=== PATIENT | female | born 1940 | race Caucasian/White ===

== ENCOUNTER → 2017-01-28 | Outpatient (REF) | payer MEDICARE ==
[2017-01-28 12:28] LABS: BASO % 0.4 % (0.0-1.0); EOS # 1.8 K/mm3 (0.0-0.50); EOS % 27.4 % (0.0-3.0); LARGE UNSTAINED CELL # 0.1 K/mm3 (0.0-0.4); LARGE UNSTAINED CELL % 1.3 % (0.0-4.0); LYMPH # 1.5 K/mm3 (1.5-4.5); MEAN CORPUSCULAR HEMOGLOBIN 27.1 pg (27.0-33.0); MEAN CORPUSCULAR HGB CONC 30.4 g/dl (32.0-36.5); MEAN CORPUSCULAR VOLUME 89.1 fl (80.0-96.0); MONO # 0.4 K/mm3 (0.0-0.8); MONO % 6.7 % (0.0-5.0); NEUTROPHILS # 2.9 K/mm3 (1.8-7.7); NEUTROPHILS % 43.1 % (36.0-66.0); PLATELET COUNT, AUTOMATED 474 k/mm3 (150-450); RED CELL DISTRIBUTION WIDTH 13.8 % (11.5-14.5); WHITE BLOOD COUNT 6.6 K/mm3 (4.0-10.0)
[2017-01-28 13:08] LABS: ALBUMIN 2.8 GM/DL (3.2-5.2); ALBUMIN/GLOBULIN RATIO 1.27 (1.00-1.93); ALKALINE PHOSPHATASE 52 U/L (45-117); ALT/SGPT 17 U/L (12-78); ANION GAP 8 MEQ/L (8-16); AST/SGOT 14 U/L (15-37); BILIRUBIN,TOTAL 0.1 MG/DL (0.2-1.0); BLOOD UREA NITROGEN 24 MG/DL (7-18); CALCIUM LEVEL 7.5 MG/DL (8.8-10.2); CARBON DIOXIDE LEVEL 25 MEQ/L (21-32); CHLORIDE LEVEL 106 MEQ/L (98-107); CREATININE FOR GFR 0.72 MG/DL (0.55-1.02); FREE T4 1.12 NG/DL (0.76-1.46); GLOMERULAR FILTRATION RATE > 60.0 (>39); GLUCOSE, FASTING 80 MG/DL (83-110); POTASSIUM SERUM 4.2 MEQ/L (3.5-5.1); SODIUM LEVEL 139 MEQ/L (136-145)
== END ==
LOC: M SFHCCLAY 08:59
PROVIDERS: ATTEND Family Medicine
DX: K58.2 Mixed irritable bowel syndrome (principal); R03.0 Elevated blood-pressure reading, without diagnosis of hypertension; E03.9 Hypothyroidism, unspecified
CPT/HCPCS: 36415; 80053; 83516; 84439; 84443; 85025; G0463

== ENCOUNTER → 2017-02-03 | Outpatient (REF) | payer MEDICARE ==
[2017-02-03 17:09] LABS: BASO % 0.5 % (0.0-1.0); EOS # 2.1 K/mm3 (0.0-0.50); EOS % 31.4 % (0.0-3.0); LARGE UNSTAINED CELL # 0.1 K/mm3 (0.0-0.4); LARGE UNSTAINED CELL % 1.9 % (0.0-4.0); LYMPH # 1.7 K/mm3 (1.5-4.5); LYMPH % 25.1 % (24.0-44.0); MEAN CORPUSCULAR HEMOGLOBIN 26.5 pg (27.0-33.0); MEAN CORPUSCULAR HGB CONC 30.2 g/dl (32.0-36.5); MEAN CORPUSCULAR VOLUME 87.6 fl (80.0-96.0); MONO # 0.4 K/mm3 (0.0-0.8); MONO % 5.5 % (0.0-5.0); NEUTROPHILS # 2.4 K/mm3 (1.8-7.7); NEUTROPHILS % 35.7 % (36.0-66.0); PLATELET COUNT, AUTOMATED 411 k/mm3 (150-450); RED CELL DISTRIBUTION WIDTH 13.9 % (11.5-14.5); WHITE BLOOD COUNT 6.8 K/mm3 (4.0-10.0)
[2017-02-03 18:40] LABS: FOLATE 16.6 NG/ML; PERCENT SATURATION 2.8 % (13.2-37.4)
== END ==
LOC: M SFHCCLAY 10:50
PROVIDERS: ATTEND Family Medicine
DX: D64.9 Anemia, unspecified (principal); D72.1 Eosinophilia

== ENCOUNTER → 2017-02-06 | Outpatient (REF) | payer MEDICARE ==
[2017-02-06 18:05] LABS: MEAN CORPUSCULAR HGB CONC 31.9 g/dl (32.0-36.5); MEAN CORPUSCULAR VOLUME 87.9 fl (80.0-96.0); RED CELL DISTRIBUTION WIDTH 14.2 % (11.5-14.5); WHITE BLOOD COUNT 8.4 K/mm3 (4.0-10.0)
== END ==
LOC: M SFHCCLAY 09:46
PROVIDERS: ATTEND Family Medicine
DX: D64.9 Anemia, unspecified (principal)

== ENCOUNTER → 2017-02-17 | Outpatient (REF) | payer MEDICARE ==
[2017-02-17 17:36] LABS: BASO # 0.1 K/mm3 (0.0-0.2); EOS # 1.8 K/mm3 (0.0-0.50); EOS % 25.6 % (0.0-3.0); LARGE UNSTAINED CELL # 0.2 K/mm3 (0.0-0.4); LARGE UNSTAINED CELL % 2.3 % (0.0-4.0); LYMPH # 1.9 K/mm3 (1.5-4.5); LYMPH % 26.6 % (24.0-44.0); MEAN CORPUSCULAR HEMOGLOBIN 27.7 pg (27.0-33.0); MEAN CORPUSCULAR HGB CONC 31.2 g/dl (32.0-36.5); MEAN CORPUSCULAR VOLUME 88.8 fl (80.0-96.0); MONO # 0.4 K/mm3 (0.0-0.8); MONO % 5.6 % (0.0-5.0); NEUTROPHILS # 2.7 K/mm3 (1.8-7.7); NEUTROPHILS % 38.9 % (36.0-66.0); PLATELET COUNT, AUTOMATED 552 k/mm3 (150-450); RED CELL DISTRIBUTION WIDTH 15.7 % (11.5-14.5)
== END ==
LOC: M SFHCCLAY 10:00
PROVIDERS: ATTEND Family Medicine
DX: D50.9 Iron deficiency anemia, unspecified (principal)

== ENCOUNTER → 2017-03-19 | Outpatient (REF) | payer MEDICARE ==
[~2017-03-19] MED LIST: ALLE180T33 PO; BUTA-198 PO; CLON-412 PO; FLUT1SPR2; IRON65TA PO; LEVO50TA5 PO; MULT1TAB10 PO; MYRB25TA PO; VERA24TASA PO
[2017-03-19 11:49] LABS: BASO # 0.1 K/mm3 (0.0-0.2); BASO % 0.7 % (0.0-1.0); EOS # 2.8 K/mm3 (0.0-0.50); EOS % 33.4 % (0.0-3.0); LARGE UNSTAINED CELL # 0.2 K/mm3 (0.0-0.4); LYMPH # 2.1 K/mm3 (1.5-4.5); LYMPH % 25.1 % (24.0-44.0); MEAN CORPUSCULAR HEMOGLOBIN 28.2 pg (27.0-33.0); MEAN CORPUSCULAR HGB CONC 31.6 g/dl (32.0-36.5); MEAN CORPUSCULAR VOLUME 89.1 fl (80.0-96.0); MONO # 0.4 K/mm3 (0.0-0.8); MONO % 5.1 % (0.0-5.0); NEUTROPHILS # 2.8 K/mm3 (1.8-7.7); NEUTROPHILS % 33.7 % (36.0-66.0); PLATELET COUNT, AUTOMATED 534 k/mm3 (150-450); RED CELL DISTRIBUTION WIDTH 18.3 % (11.5-14.5); WHITE BLOOD COUNT 8.4 K/mm3 (4.0-10.0)
== END ==
LOC: M SFHCCLAY 08:43
PROVIDERS: ATTEND Family Medicine
DX: D72.1 Eosinophilia (principal)

== ENCOUNTER → 2017-04-06 | Outpatient (REF) | payer MEDICARE ==
[2017-04-06 18:52] LABS: BASO % 0.4 % (0.0-1.0); EOS # 2.1 K/mm3 (0.0-0.50); EOS % 27.8 % (0.0-3.0); LARGE UNSTAINED CELL # 0.2 K/mm3 (0.0-0.4); LARGE UNSTAINED CELL % 2.4 % (0.0-4.0); LYMPH % 24.5 % (24.0-44.0); MEAN CORPUSCULAR HEMOGLOBIN 28.8 pg (27.0-33.0); MEAN CORPUSCULAR HGB CONC 32.1 g/dl (32.0-36.5); MEAN CORPUSCULAR VOLUME 89.7 fl (80.0-96.0); MONO # 0.4 K/mm3 (0.0-0.8); MONO % 5.3 % (0.0-5.0); NEUTROPHILS % 39.6 % (36.0-66.0); PLATELET COUNT, AUTOMATED 425 k/mm3 (150-450); RED CELL DISTRIBUTION WIDTH 18.8 % (11.5-14.5); WHITE BLOOD COUNT 7.6 K/mm3 (4.0-10.0)
== END ==
LOC: M SFHCCLAY 10:30
PROVIDERS: ATTEND Family Medicine
DX: D72.1 Eosinophilia (principal)
CPT/HCPCS: 85025; 95115; G0463

== ENCOUNTER 2017-04-22 08:45 | Outpatient (CLI) | payer MEDICARE ==
[~2017-04-22] VITALS: Ht 157.5 cm; Wt 53.5 kg
[2017-04-22] MEDS ORDERED: LIDOCAINE 2% INJ 100 MG/5 ML SDV (FOR ANES.) As Ordered ONE (08:57)
[2017-04-22] MEDS ORDERED: PROPOFOL 200 MG/20 ML VIAL As Ordered ONE (08:57)
[2017-04-22] MEDS ORDERED: NS 1,000 ML IV ONE (09:00)
--- NOTE | 2017-04-22 09:52 | ROOR ---
Patient Name: Brook Vizcaino Procedure Date: 04/22/2017 9:37 AM Date of : 1940 Age: 76 Room: [facility] Gender: Female Note Status: Finalized Procedure: Upper GI endoscopy Indications: Iron deficiency anemia Providers: Ish Britt MD Referring MD: Ryan Rodgers MD Requesting Provider: Medicines: Monitored Anesthesia Care Complications: No immediate complications. Procedure: Pre-Anesthesia Assessment: - The heart rate, respiratory rate, oxygen saturations, blood pressure, adequacy of pulmonary ventilation, and response to care were monitored throughout the procedure. The Endoscope was introduced through the mouth, with the intention of advancing to the duodenum. The scope was advanced to the duodenal bulb before the procedure was aborted. Medications were given. The upper GI endoscopy was accomplished without difficulty. The patient tolerated the procedure well. Findings: The Z-line was regular and was found 35 cm from the incisors. Localized mild inflammation characterized by congestion (edema), erosions, erythema and granularity was found in the prepyloric region of the stomach. An acquired benign-appearing, intrinsic severe stenosis was found in the first portion of the duodenum and was non-traversed. Food (residue) was found in the first portion of the duodenum. Impression: - Z-line regular, 35 cm from the incisors. - Acute gastritis. - Acquired duodenal stenosis. - Retained food in the duodenum. - No specimens collected. - The examination was otherwise normal. Recommendation: - Patient has a contact number available for emergencies. The signs and symptoms of potential delayed complications were discussed with the patient. Return to normal activities tomorrow. Written discharge instructions were provided to the patient. - Discharge patient to home. - Mechanical soft diet. - Do an upper GI series at appointment to be scheduled. - Continue present medications. - The findings and recommendations were discussed with the patient's family. Ish Britt MD Ish Britt MD 04/22/2017 9:52:11 AM This report has been signed electronically. Number of Addenda: 0 Note Initiated On: 04/22/2017 9:37 AM Estimated Blood Loss: Estimated blood loss: none.
--- NOTE | 2017-04-22 10:08 | ROOR ---
Patient Name: Brook Vizcaino Procedure Date: 04/22/2017 9:38 AM Date of : 1940 Age: 76 Room: [facility] Gender: Female Note Status: Finalized Procedure: Total Colonoscopy to Cecum Indications: Iron deficiency anemia Providers: Ish Britt MD Referring MD: Ryan Rodgers MD Requesting Provider: Medicines: Monitored Anesthesia Care Complications: No immediate complications. Procedure: Pre-Anesthesia Assessment: - The heart rate, respiratory rate, oxygen saturations, blood pressure, adequacy of pulmonary ventilation, and response to care were monitored throughout the procedure. The Colonoscope was introduced through the anus and advanced to the cecum, identified by appendiceal orifice and ileocecal valve. The colonoscopy was performed without difficulty. The patient tolerated the procedure well. The quality of the bowel preparation was excellent. Findings: The perianal and digital rectal examinations were normal. Non-bleeding internal hemorrhoids were found during retroflexion. The hemorrhoids were small and Grade I (internal hemorrhoids that do not prolapse). Multiple small and large-mouthed diverticula were found in the recto-sigmoid colon, sigmoid colon and descending colon. The exam was otherwise without abnormality on direct and retroflexion views. Impression: - Non-bleeding internal hemorrhoids. - Diverticulosis in the recto-sigmoid colon, in the sigmoid colon and in the descending colon. - The examination was otherwise normal on direct and retroflexion views. - No specimens collected. - The exam was otherwise normal to the cecum. Recommendation: - Patient has a contact number available for emergencies. The signs and symptoms of potential delayed complications were discussed with the patient. Return to normal activities tomorrow. Written discharge instructions were provided to the patient. - High fiber diet. - Discharge patient to home. - Continue present medications. - Repeat colonoscopy for symptoms only. - The findings and recommendations were discussed with the patient's family. Ihs Britt MD Ish Britt MD 04/22/2017 10:07:38 AM This report has been signed electronically. Number of Addenda: 0 Note Initiated On: 04/22/2017 9:38 AM Estimated Blood Loss: Estimated blood loss: none.
[2017-04-22 10:36] VITALS: BP 140/63
== END 2017-04-22 10:58 | disposition home or self-care (01) ==
LOC: M OPP 08:45
PROVIDERS: ATTEND Internal Medicine Gastroenterology
DX: D50.9 Iron deficiency anemia, unspecified (principal); K64.0 First degree hemorrhoids; K57.30 Diverticulosis of large intestine without perforation or abscess without bleeding; K29.00 Acute gastritis without bleeding; K31.5 Obstruction of duodenum; K21.9 Gastro-esophageal reflux disease without esophagitis; E03.9 Hypothyroidism, unspecified; I10 Essential (primary) hypertension; I47.1 Supraventricular tachycardia; J30.9 Allergic rhinitis, unspecified; K58.9 Irritable bowel syndrome, unspecified; R51 Headache; Z87.891 Personal history of nicotine dependence; Z88.1 Allergy status to other antibiotic agents; Z88.5 Allergy status to narcotic agent; Z88.0 Allergy status to penicillin; Z88.2 Allergy status to sulfonamides; Z88.3 Allergy status to other anti-infective agents; Z79.899 Other long term (current) drug therapy

== ENCOUNTER → 2017-04-30 | Outpatient (CLI) | payer MEDICARE ==
[~2017-04-30] MED LIST changes: +E-Z-GAS II EFFERVESCENT PACKET (SODIUM BICARB./CITRIC ACID/SIMETHICONE) As Ordered ONE; +E-Z-HD 98% w/w 340GM SUSP BTL As Ordered ONE; +E-Z-PAQUE 96% w/w SUSP 176GM BTL As Ordered ONE
--- NOTE | 2017-04-30 15:56 | REP ---
UPPER GI/SMALL BOWEL FOLLOW THROUGH: The procedure was performed by GLENYS Greenwood under the direct supervision of Dr. Donald. All imaging was reviewed with Dr Donald prior to dictation. The patient was able to ingest liquid barium and air in a quantity sufficient to produce a double contrast examination. The oral and pharyngeal stages of deglutition appeared unremarkable. Esophageal transport was prompt and efficient. There was no evidence of esophagitis, stricture, mucosal ring, or hiatal hernia. Gastroesophageal reflux was not observed. The stomach shankar were normally outlined. The rugal folds were smooth and regular. There was no evidence of gastritis, neoplasm, or ulcerative disease. The duodenal shankar were normally outlined. There is no evidence of duodenitis, pancreatitis, peptic ulcer disease, or neoplasm. The visualized portion of the proximal small bowel is normal in course and caliber. Additional liquid barium was given at the end of the examination in order to perform a small bowel follow through. During fluoroscopy gentle palpation of the small bowel loops showed them to be freely movable and pliable without evidence of a fixed or angulated loop. The small bowel mucosal pattern was normal in course and caliber. There was no transition to suggest a partial small bowel obstruction. Spot filming of the terminal ileum showed it to be within normal limits. Incidental finding of left colon diverticula. IMPRESSION: Unremarkable double contrast upper GI examination with small bowel follow through wit incidental finding of left colon diverticula. Fluoroscopy time was 3 minutes and 2 seconds. Reviewed by GLENYS Villalobos 04/30/2017 04:05 PEdited and Signed by Uvaldo Donald MD 04/30/2017 04:34 P
== END ==
LOC: M RAD 10:24
PROVIDERS: ATTEND Internal Medicine Gastroenterology
DX: D64.9 Anemia, unspecified (principal)

== ENCOUNTER → 2017-05-04 | Outpatient (REF) | payer MEDICARE ==
[~2017-05-04] MED LIST changes: -E-Z-GAS II EFFERVESCENT PACKET (SODIUM BICARB./CITRIC ACID/SIMETHICONE) As Ordered ONE; -E-Z-HD 98% w/w 340GM SUSP BTL As Ordered ONE; -E-Z-PAQUE 96% w/w SUSP 176GM BTL As Ordered ONE
[2017-05-04 19:09] LABS: BASO % 0.3 % (0.0-1.0); EOS # 1.4 K/mm3 (0.0-0.50); EOS % 21.8 % (0.0-3.0); LYMPH # 1.8 K/mm3 (1.5-4.5); LYMPH % 26.1 % (24.0-44.0); MONO # 0.4 K/mm3 (0.0-0.8); MONO % 6.9 % (0.0-5.0); NEUTROPHILS # 2.7 K/mm3 (1.8-7.7); NEUTROPHILS % 42.7 % (36.0-66.0)
[2017-05-04 19:33] LABS: REASON FOR REVIEW OTHER
[2017-05-04 23:15] LABS: PERCENT SATURATION 23.8 % (13.2-45.0)
== END ==
LOC: M LAB REF 14:26
PROVIDERS: ATTEND Internal Medicine Medical Oncology
DX: D72.1 Eosinophilia (principal); D50.9 Iron deficiency anemia, unspecified

== ENCOUNTER → 2017-05-11 | Outpatient (CLI) | payer MEDICARE ==
--- NOTE | 2017-05-11 16:11 | REP ---
Chest x-ray: Two views. History: Question lung pathology. Findings: A pectus excavatum deformity seen on lateral radiograph. A mild dextroconvex curve is seen in the lower thoracic spine. No other bony abnormality is seen. Lungs are well inflated and clear. Pleural angles are sharp. Heart size is felt to be normal. Pulmonary vasculature is not increased. Impression: No active disease. Mild pectus excavatum.
== END ==
LOC: M CLY 15:00
PROVIDERS: ATTEND Internal Medicine Medical Oncology
DX: D72.1 Eosinophilia (principal); Q67.6 Pectus excavatum

== ENCOUNTER → 2017-06-01 | Outpatient (REF) | payer MEDICARE ==
[2017-06-01 19:03] LABS: BASO % 0.5 % (0.0-1.0); EOS # 0.8 K/mm3 (0.0-0.50); EOS % 14.3 % (0.0-3.0); LARGE UNSTAINED CELL # 0.1 K/mm3 (0.0-0.4); LARGE UNSTAINED CELL % 2.6 % (0.0-4.0); LYMPH # 1.5 K/mm3 (1.5-4.5); LYMPH % 25.7 % (24.0-44.0); MEAN CORPUSCULAR HEMOGLOBIN 32.3 pg (27.0-33.0); MEAN CORPUSCULAR HGB CONC 32.8 g/dl (32.0-36.5); MEAN CORPUSCULAR VOLUME 98.4 fl (80.0-96.0); MONO # 0.4 K/mm3 (0.0-0.8); MONO % 6.7 % (0.0-5.0); NEUTROPHILS # 2.7 K/mm3 (1.8-7.7); NEUTROPHILS % 50.2 % (36.0-66.0); PLATELET COUNT, AUTOMATED 285 k/mm3 (150-450); RED CELL DISTRIBUTION WIDTH 16.6 % (11.5-14.5); WHITE BLOOD COUNT 5.3 K/mm3 (4.0-10.0)
== END ==
LOC: M SFHCCLAY 10:08
PROVIDERS: ATTEND Family Medicine
DX: D72.1 Eosinophilia (principal)
CPT/HCPCS: 36415; 85025; 95115; G0463

== ENCOUNTER → 2017-06-10 | Outpatient (CLI) | payer MEDICARE ==
--- NOTE | 2017-06-10 13:25 | REPMRS ---
Patient History The patient states she had a clinical breast exam in 04/2017. Patient is postmenopausal and has history of endometrial cancer at age 68. No known family history of cancer. Took estrogen for 20 years beginning at age 48. Digital Woman Screen Mammo: June 10, 2017 - Exam #: [id number] Bilateral CC and MLO view(s) were taken. Technologist: Rosa Rees Technologist Prior study comparison: June 04, 2016, digital woman screen mammo performed at [facility] to [facility]. June 04, 2015, digital woman screen mammo performed at [facility] to [facility]. FINDINGS: There are scattered fibroglandular densities. There has been no change in the appearance of the mammogram from the prior studies. There is a mild amount of residual fibroglandular tissue which is fairly symmetric. There is no interval development of dominant mass, architectural distortion, or clustered microcalcification suggestive of malignancy. ASSESSMENT: BI-RADS/ACR category 1 mammogram. Negative. Recommendation Routine screening mammogram in 1 year (for women over age 40). This mammogram was interpreted with the aid of an FDA-approved computer-aided dectection system. Electronically Signed By: Kristian Zuniga MD 06/10/17 0828
--- NOTE | 2017-06-12 09:36 | DEXA ---
AP SPINE L1 - L4 1.319 1.2 3.0 LT FEMUR TOTAL 0.899 -0.9 1.1 RT FEMUR TOTAL 0.973 -0.3 1.6 TOTAL BODY TOTAL OTHER DUAL FEMUR FRAX* ASSESSMENT Risk factors: Not done. 10 year probability of fracture Major osteoporotic fracture % Hip fracture % COMMENTS: Normal bone densitometry of the spine. There is low bone density of the hips. The decreased density of the spine does represent a significant change. The decreased density of the left hip does represent a significant change. The decreased density of the right hip does represent a significant change. The density of the spine has decreased 6.3% since the initial exam on 1999. The spine density has decreased 3.2% since the most recent exam on 06/04/2015. The density of the left hip has decreased 15.8% since the initial exam on 1999. The density of the left hip has decreased 5.3% since the most recent exam on . The density of the right hip has decreased 14.3% since the initial exam on 06/25. The density of the right hip has decreased 4.6% since the most recent exam on . FOLLOW-UP: Recommendation for the next bone density exam: 2 years. JAZZ
== END ==
LOC: M WHC 11:01
DX: Z12.31 Encounter for screening mammogram for malignant neoplasm of breast (principal); M85.80 Other specified disorders of bone density and structure, unspecified site
CPT/HCPCS: 77080; G0202

== ENCOUNTER → 2017-06-15 | Outpatient (REF) | payer MEDICARE ==
[2017-06-15 13:53] LABS: BASO # 0.1 10^3/uL (0.0-0.2); BASO % 0.9 % (0.0-1.0); EOS # 1.7 10^3/uL (0.0-0.50); IMMATURE GRANULOCYTE % 0.1 % (0-0); LYMPH # 2.2 10^3/uL (1.5-4.5); LYMPH % 30.4 % (24.0-44.0); MONO # 0.5 10^3/uL (0.0-0.8); MONO % 6.4 % (0.0-5.0); NEUTROPHILS # 2.9 10^3/uL (1.8-7.7); NEUTROPHILS % 39.4 % (36.0-66.0)
[2017-06-15 13:57] LABS: EOS % 22.8 % (0.0-3.0)
== END ==
LOC: M LAB REF 13:23
PROVIDERS: ATTEND Internal Medicine Medical Oncology
DX: D72.1 Eosinophilia (principal)

== ENCOUNTER → 2017-12-10 | Outpatient (REF) | payer MEDICARE ==
[2017-12-10 14:41] LABS: ATYPICAL LYMPH 2 % (0-5); BASOPHILS 2 % (0-4); EOSINOPHILS 36 % (0-5); LYMPHOCYTES 26 % (16-52); MONOCYTES 4 % (0-8); NEUTROPHILS 30 % (35-75); PLATELET ESTIMATE NORMAL (NORMAL)
[2017-12-10 14:42] LABS: ANISOCYTOSIS 1+
== END ==
LOC: M LAB REF 13:25
DX: D64.9 Anemia, unspecified (principal)
CPT/HCPCS: 85007

== ENCOUNTER → 2018-04-07 | Outpatient (REF) | payer MEDICARE ==
[2018-04-07 16:52] LABS: ALBUMIN 3.1 GM/DL (3.2-5.2); ALBUMIN/GLOBULIN RATIO 1.19 (1.00-1.93); ALKALINE PHOSPHATASE 59 U/L (45-117); ALT/SGPT 21 U/L (12-78); ANION GAP 7 MEQ/L (8-16); AST/SGOT 16 U/L (7-37); BILIRUBIN,TOTAL < 0.1 MG/DL (0.2-1.0); BLOOD UREA NITROGEN 21 MG/DL (7-18); CALCIUM LEVEL 8.2 MG/DL (8.8-10.2); CARBON DIOXIDE LEVEL 29 MEQ/L (21-32); CHLORIDE LEVEL 106 MEQ/L (98-107); CREATININE FOR GFR 0.83 MG/DL (0.55-1.30); FERRITIN 30 NG/ML (8-252); FREE T4 0.91 NG/DL (0.76-1.46); GLOMERULAR FILTRATION RATE > 60.0 (>39); GLUCOSE, FASTING 79 MG/DL (70-100); POTASSIUM SERUM 4.2 MEQ/L (3.5-5.1); SODIUM LEVEL 142 MEQ/L (136-145); TOTAL PROTEIN 5.7 GM/DL (6.4-8.2)
[2018-04-07 16:54] LABS: BASO # 0.1 10^3/uL (0.0-0.2); BASO % 0.9 % (0.0-1.0); EOS # 1.4 10^3/uL (0.0-0.50); HEMATOCRIT 34.2 % (36.0-47.0); HEMOGLOBIN 11.8 g/dl (12.0-15.5); LYMPH # 1.7 10^3/uL (1.5-4.5); LYMPH % 27.2 % (24.0-44.0); MEAN CORPUSCULAR HEMOGLOBIN 34.6 pg (27.0-33.0); MEAN CORPUSCULAR HGB CONC 34.5 g/dl (32.0-36.5); MEAN CORPUSCULAR VOLUME 100.3 fl (80.0-96.0); MONO # 0.6 10^3/uL (0.0-0.8); MONO % 9.3 % (0.0-5.0); NEUTROPHILS # 2.6 10^3/uL (1.8-7.7); NEUTROPHILS % 40.3 % (36.0-66.0); PLATELET COUNT, AUTOMATED 254 10^3/uL (150-450); RED BLOOD COUNT 3.41 10^6/uL (4.00-5.40); RED CELL DISTRIBUTION WIDTH 12.1 % (11.5-14.5); WHITE BLOOD COUNT 6.4 10^3/uL (4.0-10.0)
[2018-04-07 17:25] LABS: EOS % 22.3 % (0.0-3.0); POSITIVE DIFF POS FLAG
== END ==
LOC: M SFHCCLAY 10:38
DX: D50.9 Iron deficiency anemia, unspecified (principal); E03.9 Hypothyroidism, unspecified; I47.1 Supraventricular tachycardia
CPT/HCPCS: 84443

== ENCOUNTER → 2018-08-09 | Outpatient (REF) | payer MEDICARE ==
[2018-08-10 12:26] LABS: BASO # 0.1 10^3/uL (0.0-0.2); BASO % 0.7 % (0.0-1.0); EOS # 1.5 10^3/uL (0.0-0.50); EOS % 17.5 % (0.0-3.0); HEMATOCRIT 37.8 % (36.0-47.0); HEMOGLOBIN 12.7 g/dl (12.0-15.5); IMMATURE GRANULOCYTE % 0.3 % (0-3.0); LYMPH % 22.2 % (24.0-44.0); MEAN CORPUSCULAR HEMOGLOBIN 34.7 pg (27.0-33.0); MEAN CORPUSCULAR HGB CONC 33.6 g/dl (32.0-36.5); MEAN CORPUSCULAR VOLUME 103.3 fl (80.0-96.0); MONO # 0.8 10^3/uL (0.0-0.8); MONO % 8.6 % (0.0-5.0); NEUTROPHILS # 4.5 10^3/uL (1.8-7.7); NEUTROPHILS % 50.7 % (36.0-66.0); PLATELET COUNT, AUTOMATED 303 10^3/uL (150-450); RED BLOOD COUNT 3.66 10^6/uL (4.00-5.40); RED CELL DISTRIBUTION WIDTH 12.7 % (11.5-14.5); WHITE BLOOD COUNT 8.8 10^3/uL (4.0-10.0)
[2018-08-10 12:44] LABS: ALBUMIN 3.6 GM/DL (3.2-5.2); ALBUMIN/GLOBULIN RATIO 1.44 (1.00-1.93); ALKALINE PHOSPHATASE 55 U/L (45-117); ALT/SGPT 28 U/L (12-78); ANION GAP 9 MEQ/L (8-16); AST/SGOT 19 U/L (7-37); BILIRUBIN,TOTAL 0.1 MG/DL (0.2-1.0); BLOOD UREA NITROGEN 22 MG/DL (7-18); CALCIUM LEVEL 8.8 MG/DL (8.8-10.2); CARBON DIOXIDE LEVEL 25 MEQ/L (21-32); CHLORIDE LEVEL 106 MEQ/L (98-107); CREATININE FOR GFR 0.92 MG/DL (0.55-1.30); GLOMERULAR FILTRATION RATE > 60.0 (>39); GLUCOSE, FASTING 89 MG/DL (70-100); IRON (FE) 148 UG/DL (50-170); POTASSIUM SERUM 3.8 MEQ/L (3.5-5.1); SODIUM LEVEL 140 MEQ/L (136-145); TOTAL PROTEIN 6.1 GM/DL (6.4-8.2)
[2018-08-10 12:49] LABS: ERYTHROCYTE SEDIMENTATION RATE 8 mm/hr (0-30)
[2018-08-11 08:06] LABS: TRANSFERRIN 212 mg/dL (200-370)
[2018-08-13 11:14] LABS: ALPHA-1-GLOBULIN % 5.9 % (2.9-4.9); ALPHA-1-GLOBULINS 0.36 GM/DL (0.17-0.41); ALPHA-2-GLOBULINS 0.72 GM/DL (0.42-0.99); ALPHA-2-GLOBULINS % 11.8 % (7.1-11.8); BETA-1-GLOBULINS 0.35 GM/DL (0.28-0.60); BETA-1-GLOBULINS % 5.7 % (4.7-7.2); BETA-2-GLOBULINS 0.24 GM/DL (0.19-0.55); BETA-2-GLOBULINS % 3.9 % (3.2-6.5); GAMMA GLOBULIN % 8.7 % (11.1-18.8); GAMMA GLOBULINS 0.53 GM/DL (0.65-1.58)
== END ==
LOC: M SFHCCLAY 15:13
DX: D50.9 Iron deficiency anemia, unspecified (principal); I47.1 Supraventricular tachycardia; D72.1 Eosinophilia; E03.9 Hypothyroidism, unspecified
CPT/HCPCS: 83540

== ENCOUNTER → 2018-08-11 | Outpatient (CLI) | payer MEDICARE | LOC: M WHC 12:51 | DX: Z12.31 Encounter for screening mammogram for malignant neoplasm of breast (principal); R92.1 Mammographic calcification found on diagnostic imaging of breast | CPT/HCPCS: 77067 ==

== ENCOUNTER 2018-09-09 10:53 | Day surgery (SDC) | payer MEDICARE ==
[~2018-09-09] VITALS: Ht 157.5 cm; Wt 49.0 kg
[~2018-09-09 10:53] MED LIST changes: +CALTCHW4 PO; +FLUTISP; +GAVICHW PO; +LIDOCAINE 2% INJ 100 MG/5 ML SDV (FOR ANES.) As Ordered ONE; +NEXI20CA PO; +PROPOFOL 200 MG/20 ML VIAL As Ordered ONE; +SALI0.6528; +ZANTTAB PO
[2018-09-09] MEDS ORDERED: NS 1,000 ML IV ONE (11:00)
[2018-09-09] MEDS ORDERED: PROPOFOL 200 MG/20 ML VIAL As Ordered ONE ×2 (13:16→13:19)
--- NOTE | 2018-09-09 13:59 | ROOR ---
Patient Name: Brook Vizcaino Procedure Date: 09/09/2018 1:02 PM Date of : 1940 Age: 77 Room: [facility] Gender: Female Note Status: Finalized Procedure: Upper GI endoscopy Indications: Follow-up of duodenal stenosis Providers: Bogdan Yen MD Referring MD: Ryan Rodgers MD Requesting Provider: Medicines: Monitored Anesthesia Care Complications: No immediate complications. Procedure: Pre-Anesthesia Assessment: - Prior to the procedure, a History and Physical was performed, and patient medications and allergies were reviewed. The patient is competent. The risks and benefits of the procedure and the sedation options and risks were discussed with the patient. All questions were answered and informed consent was obtained. Patient identification and proposed procedure were verified by the physician, the nurse and the manager lvn in the procedure room. Mental Status Examination: alert and oriented. Airway Examination: normal oropharyngeal airway and neck mobility. CV Examination: regular rate and rhythm. Prophylactic Antibiotics: The patient does not require prophylactic antibiotics. Prior Anticoagulants: The patient has taken no previous anticoagulant or antiplatelet agents. ASA Grade Assessment: II - A patient with mild systemic disease. After reviewing the risks and benefits, the patient was deemed in satisfactory condition to undergo the procedure. The anesthesia plan was to use monitored anesthesia care (MAC). Immediately prior to administration of medications, the patient was re-assessed for adequacy to receive sedatives. The heart rate, respiratory rate, oxygen saturations, blood pressure, adequacy of pulmonary ventilation, and response to care were monitored throughout the procedure. The physical status of the patient was re-assessed after the procedure. The Endoscope was introduced through the mouth, and advanced to the duodenal bulb. The upper GI endoscopy was accomplished without difficulty. The patient tolerated the procedure well. Findings: The examined esophagus was normal. A small hiatal hernia was present. A small amount of food (residue) was found on the greater curvature of the stomach. Multiple dispersed, 2 to 7 mm non-bleeding erosions were found in the prepyloric region of the stomach and at the pylorus. There were no stigmata of recent bleeding. A moderate narrowing was noted at the end of the duodenal bulb. An acquired benign-appearing, intrinsic severe stenosis was found in the first portion of the duodenum and was non-traversed. Biopsies were taken with a cold forceps for histology. This was a tight stricture about a cm or two distal to the previously noted narrowing of the distal duodenal bulb. This was probably 3-5 mm in greatest diameter. Normal mucosa was found in the first portion of the duodenum. Biopsies were taken with a cold forceps for Helicobacter pylori testing. Impression: - Normal esophagus. - Small hiatal hernia. - A small amount of food (residue) in the stomach. - Non-bleeding erosive gastropathy. - Duodenal deformity. - Acquired duodenal stenosis. Biopsied. - Normal mucosa was found in the first portion of the duodenum. Biopsied. Recommendation: - Await pathology results. - Telephone endoscopist for pathology results in 1 week. - Discharge patient to home. - Resume previous diet. - Continue present medications. Bogdan Yen MD 09/09/2018 1:59:12 PM Number of Addenda: 0 Note Initiated On: 09/09/2018 1:02 PM Estimated Blood Loss: Estimated blood loss was minimal.
[2018-09-09 14:00] VITALS: BP 142/80
== END 2018-09-09 14:01 | disposition home or self-care (01) ==
LOC: M OPP 10:53
PROVIDERS: ATTEND Surgery
DX: D49.0 Neoplasm of unspecified behavior of digestive system (principal); D50.0 Iron deficiency anemia secondary to blood loss (chronic); K31.5 Obstruction of duodenum; Z87.891 Personal history of nicotine dependence

== ENCOUNTER 2018-10-29 08:13 | Inpatient (IN) | payer MEDICARE ==
[2018-10-29] VITALS (7 sets, daily range): BP systolic 109–121; BP diastolic 58–62
[~2018-10-29] VITALS: Ht 157.5 cm; Wt 53.0 kg
--- NOTE | 2018-10-29 08:06 | HPE ---
DATE OF ADMISSION: 10/29/2018 ADMISSION DIAGNOSIS: Duodenal stricture. HISTORY OF PRESENT ILLNESS: The patient is a pleasant 78-year-old woman who is now being admitted electively for surgery for a severe duodenal stricture. The patient has a long history of peptic ulcer disease. For some years, she has reported problems taking larger meals. She reports that she is currently taking six or seven small meals a day and eats only soft foods. She had undergone an endoscopy by Dr. Britt back in 2016 and she was noted to have a stricture in the post bulbar region of the duodenum. He was unable to advance the endoscope through this site. An upper GI series done on 04/30/2017 also showed a stricture. In May 2018, she presented at [facility] with appendicitis and underwent appendectomy. She continued to have issues with difficulty tolerating certain foods and had reported some weight loss. I performed a repeat upper endoscopy on 09/09/2018. This revealed a very severe stricture in the duodenum past the duodenal bulb. The residual opening appeared to be no more than 3-5 mm. Biopsies showed no evidence of cancer. The patient and I discussed options for management and have elected to proceed with a partial gastrectomy with vagotomy and a Aleksander-en-Y gastrojejunostomy. She is now being admitted for this elective procedure. ALLERGIES (The patient reports allergies to): - AZITHROMYCIN - BACITRACIN - CODEINE - SULFA - ZITHROMAX CURRENT MEDICATIONS: - Kika once a day - butalbital / acetaminophen/caffeine tablets - Caltrate - Centrum vitamin daily - clonidine hydrochloride 0.1 mg one twice daily - Elestat 0.05% 1 drop in affected eye twice a day as needed - fluticasone propriate 50 mcg per spray 2 sprays each nostril daily - iron tablets twice daily - levothyroxine 50 mcg once daily - Myrbetriq 25 mg by mouth daily - Nexium 20 mg 1 capsule twice daily - triamcinolone acetonide to the skin as needed - Tums as needed - verapamil hydrochloride 240 mg ER 1 tablet twice daily - Zantac 150 mg by mouth at bedtime daily PAST SURGICAL HISTORY: Significant for a laparoscopic-assisted vaginal hysterectomy for stage I endometrial carcinoma in 2008. She underwent an appendectomy in May 2018 at [facility]. She has had cataract removals and had an esophagogastroduodenoscopy (EGD) and colonoscopy in April 2017 and then a repeat EGD in August 2018. MEDICAL HISTORY: Significant for hypothyroidism. She has a history of headaches and allergies. She has had chronic sinus problems. She reports a history of some gastroesophageal reflux. She had stage I uterine cancer. She reports a history of irritable bowel syndrome. She has been diagnosed previously with hypertension and paroxysmal supraventricular tachycardia. FAMILY HISTORY: Her father is secondary to kidney disease and mother is due to cancer. SOCIAL HISTORY: The patient is a former smoker who quit 50 years ago. She has perhaps one alcoholic beverage per month. REVIEW OF SYSTEMS: Reveals no history of chest pain or palpitations. She denies any melena or hematochezia. She has no bone or joint issues at this point. She denies any history of deep vein thrombosis (DVT) or pulmonary embolus. PHYSICAL EXAMINATION: Reveals a pleasant thin, older woman in no acute distress. She is alert and oriented. Skin is warm and dry. Sclerae are anicteric. Mucous membranes are moist. Neck is supple without mass or bruit. Heart exam shows a regular rate and rhythm. The lungs are clear to auscultation bilaterally. The abdomen is thin and flat. She has active bowel sounds. The abdomen is soft and without any tenderness. Skin is warm and dry. Extremities are without any peripheral edema. She has palpable radial and dorsalis pedis pulses bilaterally. The patient's attitude is cooperative and pleasant. IMPRESSION: 1. Severe post bulbar duodenal stricture. 2. Hypothyroidism. 3. Hypertension. 4. History of paroxysmal supraventricular tachycardia. 5. Headaches. 6. Chronic sinus issues. 7. Stage I endometrial carcinoma status post hysterectomy. PLAN: The patient is being admitted on the morning of October 29 to undergo an open partial gastrectomy with selective vagotomy and Aleksander-en-Y gastrojejunostomy. The patient was counseled regarding the risks of the procedure as well as the indications for same. She has a history of chronic peptic ulcer disease and has a severe stricture. I have counseled her that I would be very concerned about recurrent ulcer disease if we merely did a drainage procedure to the stomach. She had an opportunity to ask questions. She was counseled regarding the risks which include, but are not limited to bleeding, infection, scarring, adverse drug reaction, need for further surgery, injury of internal organ, anastomotic leak, and hernia. The patient desires to proceed with the surgery as I have outlined it. She will receive preoperative antibiotics. edited: 11/05/2018 1138 tkf JAZZ
[~2018-10-29 08:13] MED LIST changes: -LIDOCAINE 2% INJ 100 MG/5 ML SDV (FOR ANES.) As Ordered ONE; +LR 1,000 ML IV ONE; -PROPOFOL 200 MG/20 ML VIAL As Ordered ONE; +cefoTEtan DISODIUM 2 GM in D5W MINI-BAG PLUS 50 ML IV ONE
[2018-10-29] MEDS ORDERED: fentaNYL 100 MCG/2 ML INJECTION (J3010) As Ordered ONE (09:20)
[2018-10-29] MEDS ORDERED: MIDAZOLAM INJ 2 MG/2 ML VIAL (J2250) As Ordered ONE (09:20)
[2018-10-29] MEDS ORDERED: MIDAZOLAM INJ 2 MG/2 ML VIAL (J2250) IV ONE (10:45)
[2018-10-29] MEDS ORDERED: fentaNYL 100 MCG/2 ML INJECTION (J3010) IV ONE (10:45)
[2018-10-29] MEDS ORDERED: ROCURONIUM BROMIDE 50 MG/5 ML VIAL As Ordered ONE ×2 (11:12→11:57)
[2018-10-29] MEDS ORDERED: LIDOCAINE 2% INJ 100 MG/5 ML SDV (FOR ANES.) As Ordered ONE (11:57)
[2018-10-29] MEDS ORDERED: PROPOFOL 200 MG/20 ML VIAL As Ordered ONE (11:57)
[2018-10-29] MEDS ORDERED: fentaNYL 250 MCG/5 ML INJECTION (J3010) As Ordered ONE (11:57)
[2018-10-29] MEDS ORDERED: BUPIVACAINE HCL 0.25% 30 ML VIAL As Ordered ONE (11:57)
[2018-10-29] MEDS ORDERED: ONDANSETRON 4MG/2ML VIAL (J2405) As Ordered ONE (11:57)
[2018-10-29] MEDS ORDERED: dexameTHASONE 4 MG/ML 1ML VIAL (J1100) As Ordered ONE (11:57)
[2018-10-29] MEDS ORDERED: ePHEDrine SULFATE 25 MG/5 ML(5MG/ML) SYRINGE As Ordered ONE (12:11)
[2018-10-29] MEDS ORDERED: NEOSTIGMINE 10 MG/10 ML VIAL (J2710) As Ordered ONE (13:12)
[2018-10-29] MEDS ORDERED: GLYCOPYRROLATE INJ 0.2 MG/ML 2 ML VIAL As Ordered ONE (13:12)
[2018-10-29] MEDS ORDERED: ONDANSETRON 4MG/2ML VIAL (J2405) IV PRN ×3 (14:45→15:45)
[2018-10-29] MEDS ORDERED: METOCLOPRAMIDE INJ 10MG/2ML VIAL (J2765) IV PRN ×2 (14:45→15:00)
[2018-10-29] MEDS ORDERED: FENTANYL 2MCG/ML BUPIVACAINE 0.0625% NACL 250ML IV BAG As Ordered ONE (14:57)
[2018-10-29] MEDS ORDERED: EPIDURAL/PCA KEYS XX PRN (15:00)
[2018-10-29] MEDS ORDERED: diphenhydrAMINE INJ 50MG/ML VIAL (J1200) IV PRN (15:00)
[2018-10-29] MEDS ORDERED: WALLBOXKEY XX PRN (15:00)
[2018-10-29] MEDS ORDERED: NALOXONE INJ 0.4 MG/1 ML VIAL (J2310) IV PRN (15:00)
[2018-10-29] MEDS: FENTANYL/BUPIVACAINE/NACL BAG 250 ML EPIDURAL SCH (15:05)
[2018-10-29] MEDS: fentaNYL 100 MCG/2 ML INJECTION (J3010) IV PRN ×4 (15:05→15:20)
[2018-10-29] MEDS ORDERED: LR 1,000 ML IV SCH (15:45)
[2018-10-29] MEDS: PANTOPRAZOLE 40MG INJ (PROTONIX) (C9113) IV SCH (16:35)
[2018-10-29] MEDS: KETOROLAC 30 MG/ML VIAL (J1885) IV PRN (16:36)
[2018-10-29] MEDS: LR 1,000 ML IV SCH (17:35)
[2018-10-29] MEDS ORDERED: MORPHINE 4 MG/ML 1ML VIAL/SYRINGE (J2270) IV ONE (19:15)
[2018-10-29] MEDS: ENOXAPARIN 40 MG/0.4 ML SYRINGE (J1650) SC SCH (22:05)
[2018-10-30 02:00] VITALS: BP 154/68
[2018-10-30] MEDS: LR 1,000 ML IV SCH ×2 (02:23→08:20)
[2018-10-30] MEDS: KETOROLAC 30 MG/ML VIAL (J1885) IV PRN ×4 (02:24→22:43)
[2018-10-30 06:00] VITALS: BP 135/85
[2018-10-30 06:48] LABS: BASO # 0.1 10^3/uL (0.0-0.2); BASO % 0.5 % (0.0-1.0); EOS # 0.3 10^3/uL (0.0-0.50); EOS % 2.7 % (0.0-3.0); HEMATOCRIT 28.5 % (36.0-47.0); HEMOGLOBIN 9.7 g/dl (12.0-15.5); LYMPH # 2.2 10^3/uL (1.5-4.5); LYMPH % 19.2 % (24.0-44.0); MEAN CORPUSCULAR HEMOGLOBIN 34.4 pg (27.0-33.0); MEAN CORPUSCULAR VOLUME 101.1 fl (80.0-96.0); MONO # 0.9 10^3/uL (0.0-0.8); NEUTROPHILS % 69.4 % (36.0-66.0); PLATELET COUNT, AUTOMATED 299 10^3/uL (150-450); RED BLOOD COUNT 2.82 10^6/uL (4.00-5.40); WHITE BLOOD COUNT 11.6 10^3/uL (4.0-10.0)
[2018-10-30 07:16] LABS: ALBUMIN 2.3 GM/DL (3.2-5.2); ALT/SGPT 88 U/L (12-78); AMYLASE 77 U/L (25-115); BILIRUBIN,TOTAL 0.3 MG/DL (0.2-1.0); BLOOD UREA NITROGEN 23 MG/DL (7-18); CARBON DIOXIDE LEVEL 27 MEQ/L (21-32); CHLORIDE LEVEL 106 MEQ/L (98-107); CREATININE FOR GFR 0.81 MG/DL (0.55-1.30); GLOMERULAR FILTRATION RATE > 60.0 (>32); GLUCOSE, FASTING 82 MG/DL (70-100); POTASSIUM SERUM 3.9 MEQ/L (3.5-5.1); SODIUM LEVEL 139 MEQ/L (136-145); TOTAL PROTEIN 4.9 GM/DL (6.4-8.2)
[2018-10-30] MEDS: PANTOPRAZOLE 40MG INJ (PROTONIX) (C9113) IV SCH (08:20)
--- NOTE | 2018-10-30 09:35 | IPN ---
DATE: 10/29/2018 HISTORY: The patient is now several hours postop from her vagotomy with antrectomy and Aleksander-en-Y gastrojejunostomy. She appears to be doing very well. She reports no pain at rest with her epidural running. She has had a headache and wanted some oral medications, but I nixed this idea and gave her small dose of morphine IV. Vital signs: The patient has been afebrile since surgery. Her pulse is running in the low 90s and her blood pressure is good. Room air oxygen saturation is in the 90s. Intake and output: She has had 300 of urine output recorded. She has another 200 mL of very light-colored urine in bag at this time. PHYSICAL EXAMINATION: The patient is alert and oriented. She does appear comfortable. Heart exam shows a regular rhythm. The abdomen is flat and fairly quiet. Her dressing is dry. The Kodak drain has a small amount of serosanguineous fluid in the bulb. IMPRESSION: The patient is doing well now approximately 4 hours postop from her major surgery. We will check her labs in the morning. She must remain nothing by mouth and we will consider removing her Biggs in the morning.
[2018-10-30 10:00] VITALS: BP 170/88
--- NOTE | 2018-10-30 13:20 | IPN ---
DATE OF VISIT: 10/30/2018 The patient is seen today on the 5 Colon. This is her first postop day from her selective vagotomy, antrectomy and Aleksander-en-Y gastrojejunostomy. Surgery seemed to have gone well, but she did have rather severe acquired duodenal stricture. She has had some headache, she is nothing by mouth. No having any cough or shortness of breath. Does report some postnasal drainage. No chest pains or palpitations. Really not having any pain to speak of, but does have a fentanyl spinal infusion going on. At this time, her temperature is 100.8, blood pressure 135/85, pulse 83 and regular, respirations 18 and oxygen saturation 96% on room air. Her BUN is 23, creatinine 0.89, potassium 3.9, glucose of 82, hemoglobin 9.7, WBCs 11,600 and her AST is up a little bit of 95, ALT of 88. I suspect that that is a function of manipulation of her biliary tract during the course of her surgery. ASSESSMENT: Status post upper abdominal surgery for acquired duodenal stricture. History of labile blood pressure. History of chronic headaches. History of paroxysmal atrial tachycardia. PLAN: Patient will continue on her current treatments. The surgeon tells me that he will be starting some clear liquids today. Will try to get her back on some of her oral medications. Certainly would like to avoid her having any symptomatic hypertension or tachycardia. I will be seeing the patient again tomorrow for followup. JAZZ
--- NOTE | 2018-10-30 13:25 | IPN ---
DATE: 10/30/2018 HISTORY: The patient is now postop day 1 from a selective vagotomy with antrectomy and Aleksander-en-Y gastrojejunostomy. She has done very well following surgery in general. She has complained of a headache more than abdominal pain. She has an epidural running in 8 mL/hour. She has a drain on the right side of the abdomen to Chidi-Colon bulb and she has a Biggs catheter in place. VITAL SIGNS: Shows that she has had a T-max of 101 degrees at 2 o'clock this morning. Her pulse is in the 80s to as high as 100. Blood pressure is good and her room air oxygen saturation is normal. INTAKE AND OUTPUT: Shows that yesterday she had 3800 in with 300 recorded out and an estimated blood loss of 100. She currently has a large volume of urine in her Biggs catheter. PHYSICAL EXAMINATION: The patient is alert and oriented and appears fairly comfortable. Heart exam shows a regular rhythm. The lungs are clear. Her cough effort is fair to good. Her abdomen is flat. Her dressing is dry. She does have some bowel sounds though these are not active. Laboratory studies this morning show a white count of 12, hemoglobin of 10, hematocrit of 28, platelet count of 299,000. Differential count shows 69% neutrophils, 19% lymphocytes, 8% monocytes. Chemistry profile shows normal electrolytes with BUN of 23, creatinine 0.89, glucose of 82. Her AST and ALT are slightly elevated. Total protein is 4.9 with an albumin of 2.3. Amylase is normal at 77. The patient is doing very well following her extensive surgery. She has shown no signs of any internal bleeding or pancreatitis following the procedure. The epidural seems to working very well. She denies any nausea. PLAN: The patient will be started on some sips of clear liquids. She is encouraged to be up out of bed at least several times today to ambulate. I will discontinue her sequential stockings to encourage this. She has two IVs in place and one of these can certainly be removed. She has a brisk urine output right now and I will cut her IV rate back and saline lock this if she tolerates her clear liquid sips. If the sips are tolerated, we can advance her to unlimited liquids tomorrow and proceed from there. I think I will leave the Biggs in another day to monitor her urine output.
[2018-10-30 14:00] VITALS: BP 172/87
[2018-10-30] MEDS: FENTANYL/BUPIVACAINE/NACL BAG 250 ML EPIDURAL SCH (14:58)
[2018-10-30] MEDS: FIORICET TAB PO PRN (18:28)
[2018-10-30 22:00] VITALS: BP 147/81
[2018-10-30] MEDS: ENOXAPARIN 40 MG/0.4 ML SYRINGE (J1650) SC SCH (22:41)
[2018-10-30] MEDS: VERAPAMIL 120 MG SR TAB PO SCH (22:42)
[2018-10-31] MEDS: FIORICET TAB PO PRN ×3 (01:38→15:00)
[2018-10-31 06:00] VITALS: BP 154/74
[2018-10-31] MEDS: LEVOTHYROXINE 50MCG TABLET (0.05MG) PO SCH (06:53)
[2018-10-31 07:53] LABS: BLOOD UREA NITROGEN 15 MG/DL (7-18); CALCIUM LEVEL 7.6 MG/DL (8.8-10.2); CARBON DIOXIDE LEVEL 23 MEQ/L (21-32); CHLORIDE LEVEL 101 MEQ/L (98-107); CREATININE FOR GFR 0.54 MG/DL (0.55-1.30); GLOMERULAR FILTRATION RATE > 60.0 (>32); GLUCOSE, FASTING 66 MG/DL (70-100); POTASSIUM SERUM 3.2 MEQ/L (3.5-5.1); SODIUM LEVEL 136 MEQ/L (136-145)
[2018-10-31] MEDS: PANTOPRAZOLE 40MG INJ (PROTONIX) (C9113) IV SCH (08:08)
[2018-10-31] MEDS: VERAPAMIL 120 MG SR TAB PO SCH (08:10)
[2018-10-31] MEDS: LR 1,000 ML IV SCH (08:11)
[2018-10-31 10:00] VITALS: BP 155/89
[2018-10-31] MEDS: POTASSIUM CHLORIDE 10% LIQ 20 MEQ/15 ML UDC PO SCH ×2 (13:14→18:01)
[2018-10-31 14:00] VITALS: BP 162/77
[2018-10-31] MEDS: cloNIDine 0.1 MG TAB PO SCH ×2 (14:59→21:33)
[2018-10-31] MEDS: FENTANYL/BUPIVACAINE/NACL BAG 250 ML EPIDURAL SCH (15:03)
[2018-10-31 18:00] VITALS: BP 147/63
[2018-10-31] MEDS: ENOXAPARIN 40 MG/0.4 ML SYRINGE (J1650) SC SCH (21:34)
[2018-10-31 22:00] VITALS: BP 119/61
[2018-11-01] MEDS: LEVOTHYROXINE 50MCG TABLET (0.05MG) PO SCH (05:17)
[2018-11-01 06:00] VITALS: BP 146/66
[2018-11-01 06:48] LABS: BASO # 0.1 10^3/uL (0.0-0.2); BASO % 0.5 % (0.0-1.0); EOS # 1.8 10^3/uL (0.0-0.50); EOS % 17.9 % (0.0-3.0); HEMATOCRIT 28.3 % (36.0-47.0); HEMOGLOBIN 9.9 g/dl (12.0-15.5); LYMPH # 1.9 10^3/uL (1.5-4.5); MEAN CORPUSCULAR HEMOGLOBIN 34.7 pg (27.0-33.0); MEAN CORPUSCULAR VOLUME 99.3 fl (80.0-96.0); MONO # 0.9 10^3/uL (0.0-0.8); MONO % 8.6 % (0.0-5.0); NEUTROPHILS # 5.6 10^3/uL (1.8-7.7); NEUTROPHILS % 54.7 % (36.0-66.0); PLATELET COUNT, AUTOMATED 308 10^3/uL (150-450); RED BLOOD COUNT 2.85 10^6/uL (4.00-5.40); WHITE BLOOD COUNT 10.3 10^3/uL (4.0-10.0)
[2018-11-01 07:20] LABS: ALBUMIN 2.3 GM/DL (3.2-5.2); ALT/SGPT 51 U/L (12-78); BILIRUBIN,TOTAL 0.3 MG/DL (0.2-1.0); BLOOD UREA NITROGEN 23 MG/DL (7-18); CALCIUM LEVEL 7.5 MG/DL (8.8-10.2); CARBON DIOXIDE LEVEL 25 MEQ/L (21-32); CHLORIDE LEVEL 103 MEQ/L (98-107); CREATININE FOR GFR 0.74 MG/DL (0.55-1.30); GLOMERULAR FILTRATION RATE > 60.0 (>32); GLUCOSE, FASTING 82 MG/DL (70-100); POTASSIUM SERUM 3.6 MEQ/L (3.5-5.1); SODIUM LEVEL 136 MEQ/L (136-145); TOTAL PROTEIN 5.2 GM/DL (6.4-8.2)
[2018-11-01 08:00] VITALS: BP 157/84
[2018-11-01] MEDS: MYRBETRIQ 25 MG PO SCH (09:00)
[2018-11-01] MEDS ORDERED: PANTOPRAZOLE 40MG TAB (PROTONIX) PO SCH (09:00)
[2018-11-01] MEDS: PANTOPRAZOLE 20 MG TAB PO SCH (09:00)
[2018-11-01] MEDS: VERAPAMIL 120 MG SR TAB PO SCH (09:11)
[2018-11-01] MEDS: cloNIDine 0.1 MG TAB PO SCH ×2 (09:12→20:43)
[2018-11-01] MEDS: FIORICET TAB PO PRN ×2 (09:57→23:39)
[2018-11-01] MEDS: LR 1,000 ML IV SCH (11:44)
[2018-11-01 14:00] VITALS: BP 129/59
[2018-11-01] MEDS: FENTANYL/BUPIVACAINE/NACL BAG 250 ML EPIDURAL SCH (17:17)
--- NOTE | 2018-11-01 19:01 | RO ---
DATE OF PROCEDURE: 10/29/2018 PREOPERATIVE DIAGNOSIS: Peptic ulcer disease with severe postbulbar duodenal stricture. POSTOPERATIVE DIAGNOSIS: Peptic ulcer disease with severe postbulbar duodenal stricture. PROCEDURE PERFORMED: Laparotomy with selective vagotomy, antrectomy, and Aleksander-en-Y gastrojejunostomy. SURGEON: Dr. Bogdan Yen NONPROFIT FINANCIAL CONTROLLER: Dr. Dolan who was required for assistance with retraction and management of the stapling and suturing. ANESTHESIA: General with epidural. INDICATIONS FOR PROCEDURE: The patient is an 78-year-old woman with a history of peptic ulcer disease. Over a year ago, she was found to have a significant stricture in the duodenum but her symptoms seemed to be relatively less than anticipated at that time and surgery was not undertaken. This year, she noted a weight loss, and she has had more trouble with eating. She is on multiple small meals a day that are primarily liquid and very soft. Endoscopy recently showed a 3-5 mm opening in the duodenum with some active areas of ulceration and narrowing at the level of the pylorus and within the duodenal bulb. She is now for a vagotomy and antrectomy with a Aleksander-en-Y reconstruction. DESCRIPTION OF PROCEDURE: The patient had an epidural catheter placed for pain management preoperatively. She was moved to the operating room and placed on the table in a supine position. She was placed under general endotracheal anesthesia. A Biggs catheter was inserted. Thromboembolism deterrents (TEDs) and sequentials were utilized. The patient's abdomen was prepped and draped in a sterile fashion. The abdomen was entered through a midline incision beginning slightly below the level of the xyphoid and extending down to the umbilicus. The peritoneum was opened without incident. A Bookwalter retractor was used for aid in retraction. Dr. Dolan also utilized handheld retractors at multiple points in the procedure to assist in exposure, particularly of the area for the vagotomy. Initially the stomach was identified. There was no evidence of mass in the area of the duodenum. The pylorus could be readily identified but the site of the duodenal stricture was not clearly visible externally. The patient's liver otherwise looked normal, as did the gallbladder which was full but not inflamed. The small bowel was run from the ligament of Treitz to the ileocecal valve and this appeared normal. The colon was palpated, and there were no significant abnormalities identified. The greater curve of the stomach was then elevated. The omentum was elevated off of the transverse colon and dissection proceeded up along the greater curve of the stomach dividing the tissues away from the greater curve extending to a point along the greater curve at the same level as the incisura along the lesser curve. The lesser omentum was also opened through the avascular portion. The pancreas was readily evident because of the patient's paucity of intra-abdominal fat. Attention was turned to the performance of the vagotomy. Retraction of the liver was somewhat difficult and unfortunately in the course of adjusting the retractors, a small tear of the undersurface of the left lobe of the liver occurred with release of a small amount of blood. This was not a large area, and this area was packed and on later inspection showed no evidence of ongoing bleeding. The tissues to the right of the diaphragmatic hiatus were opened. The tissues were cleared away from the anterior surface of the distal esophagus dividing fibers consistent with the anterior vagus. An opening was created posterior to the esophagus over to the left and a Curtis drain was placed around the esophagogastric junction. Dissection then proceeded to divide tissues on the posterior aspect of the esophagus consistent with the posterior vagal trunk. The level of the division of the vagal fibers was such that I anticipate the hepatic branch of the right vagus nerve should have been spared, though it was not clearly identified individually. Hemostasis was ensured in this area. Attention was then turned to division of the stomach. A linear cutter 100 stapler was placed across of the body of the stomach at the appropriate point and closed and fired. A small bleeding point along the edge of the staple line was controlled with a suture of #3-0 Vicryl. The posterior aspect of the distal antrum was then divided away from underlying tissues working close to the wall of the stomach to avoid the adjacent pancreas. Dissection proceeded approximately 2 cm distal to the pylorus. At this point, I elected to open the duodenal bulb to inspect the area of the stricture. The opening was made transversely with the cautery. Inspection revealed a few fragments of food in the distal duodenal bulb area, and these were removed with forceps. The anatomy was familiar from her recent upper endoscopy. I did not see the stricture definitely, but there was no bile in the area where the duodenum was opened. The duodenum was then stapled with a TX60B stapler, and the duodenum was transected just proximal to the staple line and the antrum and duodenal bulb were passed off as a specimen. The duodenal stump suture line was then inverted beneath multiple sutures of #3-0 silk without significant difficulty. We then proceeded with the reconstruction. The jejunum was identified just distal to the ligament of Treitz. A point was selected for division of the jejunum, and this was accomplished with a linear cutter 55 stapler. The mesentery was divided partially to allow mobilization of the distal portion of the jejunum through an opening in the transverse mesocolon to lie up adjacent to the remaining stomach. The edges of the opening through the transverse mesocolon were tacked to the jejunum with multiple simple sutures of #3-0 silk. A stapled anastomosis was then performed between the greater curve and the jejunum. This was accomplished by excising the end of the staple line on the stomach at the greater curve side and performing a stapled anastomosis with a linear cutter 55 with the residual opening closed with a TX60B stapler. Several points along the staple line were reinforced with additional sutures of #3-0 silk. Overall the staple line looked excellent. The bowel continuity was restored then by performing a stapled anastomosis between the proximal free end of the jejunum and the Aleksander limb coming from the stomach. This was accomplished with a linear cutter 55 stapler and again a TX60B stapler. Again several reinforcing sutures of #3-0 silk were placed. The abdomen was irrigated with some warm saline. I placed several sutures of silk to approximate the mesentery of the small bowel where the bowel continuity was established to try to prevent any internal herniation through this area. The left upper quadrant was inspected for hemostasis. There was no evidence of any bleeding from the liver or spleen. The irrigation was removed as thoroughly as possible. A 19-Romansh Kodak drain was inserted through the right upper quadrant and directed posterior to the gallbladder across the duodenal stump adjacent to the gastrojejunal anastomosis and over under the left side of the liver. This was sutured to the skin with a #2-0 silk suture. The midline fascia was approximated with interrupted simple sutures of #1 Vicryl. The skin incision was closed with skin juliann. A CHG OpSite was placed over the drain site, and this was connected to a Chidi-Colon bulb. The patient tolerated the procedure well without apparent complication. She was awakened in the operating room, extubated and moved to the recovery room in stable condition.
--- NOTE | 2018-11-01 20:13 | IPN ---
DATE: 10/31/2018 HISTORY: The patient is now postoperative day #2 from a selective vagotomy with antrectomy and Aleksander-en-Y gastrojejunostomy. She has been doing very well. She took a few sips of clear liquids yesterday which she had no problems with. She was also started back on some Fioricet which made her headache much better. She has a little bit of discomfort today, though her epidural was still running at 8 mL/hour. She was apparently kept awake a lot last night by one of her monitors. Vital signs show that she has been afebrile, though with a T-max of 99.8 at 10 o'clock last night. Her pulse is in the 90s. Blood pressure is good though it is up in the mid 150s pretty consistently and her oxygen saturation is normal. Intake and output shows that yesterday she had 1300 in with 3700 out. Her drain is recorded as having 170 mL. This morning she has had 1800 mL of urine output overnight with 20 from her drain. PHYSICAL EXAMINATION: The patient is alert and oriented. She has several family members in the room and they are joking together. She seems alert and oriented. Skin is warm and dry. Sclerae are anicteric. Heart exam shows a regular rhythm. The lungs are clear. The abdomen is thin and flat and her dressing is dry. She has active bowel sounds. LABORATORY STUDIES: She had a BMP today because of her brisk urine output and this shows that her potassium is down to 3.2 with otherwise normal electrolytes. Her glucose is a little low at 66 and a fingerstick was done at 11:40 a.m. that was 55 but she had no symptoms. IMPRESSION: The patient is doing very well now postoperative day #2 from her partial gastrectomy. PLAN: The patient will be started on full liquids today and she was advised to go slowly and ensure that these are going well before she drinks too much at one time. She will receive two doses of oral potassium in a liquid form. We will discontinue her Biggs catheter and her pulse oximetry and her sequential compression hose. She is on Lovenox for DVT prophylaxis. She will be encouraged to be up out of bed. I will continue the epidural today and if she tolerates her full liquids today we will consider putting her on oral pain medication tomorrow and plan to discontinue her epidural. Her IV can be saline locked when she is taking orals adequately.
[2018-11-01 22:00] VITALS: BP 157/74
[2018-11-01] MEDS: ENOXAPARIN 40 MG/0.4 ML SYRINGE (J1650) SC SCH (22:03)
[2018-11-02 02:00] VITALS: BP 154/78
[2018-11-02] MEDS: LEVOTHYROXINE 50MCG TABLET (0.05MG) PO SCH (05:28)
[2018-11-02 06:00] VITALS: BP 148/72
[2018-11-02] MEDS: VERAPAMIL 120 MG SR TAB PO SCH (09:21)
[2018-11-02] MEDS: PANTOPRAZOLE 20 MG TAB PO SCH (09:22)
[2018-11-02] MEDS: cloNIDine 0.1 MG TAB PO SCH ×2 (09:23→20:36)
[2018-11-02] MEDS: MYRBETRIQ 25 MG PO SCH (09:31)
[2018-11-02 10:00] VITALS: BP 164/78
[2018-11-02] MEDS ORDERED: EPIN1DRO OU (13:20)
[2018-11-02] MEDS ORDERED: REFR0.5D8 OU (13:20)
[2018-11-02 14:00] VITALS: BP 149/67
[2018-11-02] MEDS: FIORICET TAB PO PRN ×2 (14:20→21:50)
--- NOTE | 2018-11-02 14:44 | IPN ---
DATE: 11/01/2018 HISTORY: The patient is now postoperative day #3 from a selective vagotomy with antrectomy and Aleksander-en-Y gastrojejunostomy. The patient was started on some full liquids yesterday. She has tolerated these well though she says she has not eaten much. She admits this morning to having been a little confused about her surroundings when she woke this morning and when she was speaking with Dr. Rodgers yesterday. Vital signs show that she has been afebrile over the last 24 hours. Pulse is in the 80-100 range today. Blood pressure is good and her oxygen saturations are normal. Intake and output show that yesterday she had 1680 total in with 3200 out. She had 50 mL recorded from her drain. She has voided since her Biggs catheter was removed yesterday. PHYSICAL EXAMINATION: The patient is sitting propped up in the bed looking quite comfortable. She has an epidural catheter in place running at 8 mL still. Skin is warm and dry. Neck is supple. Heart exam shows a regular rhythm. The lungs are clear. The abdomen is thin and flat, and she has active bowel sounds. Her dressing is dry. Drain has a minimal amount of serosanguineous fluid in the tubing. Laboratory studies show that she has a white count of 10,000 today with a differential showing 55% neutrophils, 18% lymphocytes, 9% monocytes, and 18% eosinophils. Hemoglobin is 10 with a hematocrit of 28. Chemistry profile shows normal electrolytes with BUN of 23, creatinine 0.7 and a glucose of 82. Liver function tests are normal with a total protein of 5.2 and albumin of 2.3. IMPRESSION: The patient is doing very well now postop day #3 from her extensive gastric surgery. She is tolerating some full liquids but has not eaten very much. She reports that she is having flatus but has not had a bowel movement yet. She does indicate she is voiding fine. PLAN: The patient will be continued on her current medications. She is back on her usual verapamil and Catapres. I will speak with anesthesia about starting to reduce her epidural rate in anticipation of putting her on some oral medications. We will not advance her diet further today. Her drain will probably be due for removal tomorrow.
[2018-11-02 18:00] VITALS: BP 159/81
[2018-11-02] MEDS: FENTANYL/BUPIVACAINE/NACL BAG 250 ML EPIDURAL SCH (18:24)
[2018-11-02 22:00] VITALS: BP 154/72
[2018-11-03 02:00] VITALS: BP 153/84
[2018-11-03] MEDS: LEVOTHYROXINE 50MCG TABLET (0.05MG) PO SCH (05:40)
[2018-11-03 06:00] VITALS: BP 139/63
[2018-11-03 07:02] LABS: BASO % 0.5 % (0.0-1.0); EOS # 2.4 10^3/uL (0.0-0.50); HEMATOCRIT 28.7 % (36.0-47.0); HEMOGLOBIN 9.7 g/dl (12.0-15.5); MEAN CORPUSCULAR HEMOGLOBIN 34.3 pg (27.0-33.0); MEAN CORPUSCULAR HGB CONC 33.8 g/dl (32.0-36.5); MEAN CORPUSCULAR VOLUME 101.4 fl (80.0-96.0); MONO # 0.8 10^3/uL (0.0-0.8); MONO % 9.3 % (0.0-5.0); NEUTROPHILS # 4.2 10^3/uL (1.8-7.7); NEUTROPHILS % 49.4 % (36.0-66.0); PLATELET COUNT, AUTOMATED 326 10^3/uL (150-450); RED BLOOD COUNT 2.83 10^6/uL (4.00-5.40); WHITE BLOOD COUNT 8.5 10^3/uL (4.0-10.0)
[2018-11-03 07:17] LABS: ALBUMIN 2.5 GM/DL (3.2-5.2); ALT/SGPT 49 U/L (12-78); BILIRUBIN,TOTAL 0.3 MG/DL (0.2-1.0); BLOOD UREA NITROGEN 15 MG/DL (7-18); CALCIUM LEVEL 7.7 MG/DL (8.8-10.2); CARBON DIOXIDE LEVEL 28 MEQ/L (21-32); CHLORIDE LEVEL 107 MEQ/L (98-107); CREATININE FOR GFR 0.68 MG/DL (0.55-1.30); GLOMERULAR FILTRATION RATE > 60.0 (>32); GLUCOSE, FASTING 92 MG/DL (70-100); POTASSIUM SERUM 3.6 MEQ/L (3.5-5.1); SODIUM LEVEL 141 MEQ/L (136-145); TOTAL PROTEIN 5.5 GM/DL (6.4-8.2)
[2018-11-03 07:44] LABS: EOS % 28.6 % (0.0-3.0)
[2018-11-03] MEDS: cloNIDine 0.1 MG TAB PO SCH ×2 (08:52→19:56)
[2018-11-03] MEDS: PANTOPRAZOLE 20 MG TAB PO SCH (08:52)
[2018-11-03] MEDS: MYRBETRIQ 25 MG PO SCH (08:53)
[2018-11-03] MEDS: VERAPAMIL 120 MG SR TAB PO SCH (08:53)
[2018-11-03] MEDS: FIORICET TAB PO PRN ×3 (08:56→23:48)
[2018-11-03 14:00] VITALS: BP 161/75
[2018-11-03] MEDS ORDERED: ACETAMINOPHEN TAB 650MG DOSE (2X325MG) PO PRN (15:45)
--- NOTE | 2018-11-03 16:47 | IPN ---
DATE: 11/02/2018 HISTORY: The patient is postoperative day number four from a selective vagotomy with antrectomy and Aleksander-en-Y gastrojejunostomy. She has been doing very well. She is on a full liquid diet which she has been tolerating well. She has her Kodak drain in place in the right side of the abdomen. Her epidural continues, although the rate was reduced to 6 mL/hour. Vital signs show that she has been afebrile over the past 24 hours. Her pulse is in the 80s to 90s. Blood pressure is excellent. Intake and output shows that yesterday she had 1600 in with 1500 out. Her drain had 60 mL out. She has not yet had a bowel movement and she had five voids recorded. PHYSICAL EXAMINATION: The patient is lying quietly in the bed. She is alert and oriented. Skin is warm and dry. Heart examination shows a regular rate and rhythm. The abdomen is thin and flat with active bowel sounds. Her midline incision is clean and dry. Her Kodak drain has a minimal amount of pink fluid in the bulb. IMPRESSION: The patient is doing very well now four days postoperative from her extensive gastric surgery. She has been tolerating full liquids. She is off any IV medications. PLAN: We will advance her to a regular diet. I advised her to take small bites and chew well. We will plan to have her epidural removed in the morning. We will continue to monitor her Kodak drain for now.
--- NOTE | 2018-11-03 16:49 | IPN ---
DATE: 11/03/2018 HISTORY: The patient is now postoperative day #5 from her antrectomy and Aleksander-en-Y gastrojejunostomy. She has been doing very well. I turned off her epidural this morning, and the catheter was removed by anesthesia shortly thereafter. She denies any significant pain at present. She has been tolerating her regular diet. She is voiding well but has not yet had a bowel movement. Vital signs show that she has been afebrile over the past 24 hours with a pulse in the 70s to 80s. Her blood pressure is good. Intake and output show that yesterday she had 1400 in with 3100 out. Her Okdak drain had 85 mL out yesterday. She is voiding well, but she has not had a bowel movement yet. PHYSICAL EXAMINATION: The patient is alert and oriented and appears quite comfortable. Heart exam shows a regular rhythm. The lungs are clear. The abdomen is thin and flat with active bowel sounds, and there is no undue tenderness. Lower extremities are without edema. Laboratory studies today showed a white count of 8, hemoglobin of 10, hematocrit of 29, and platelet count of 326,000. Her differential count shows 49% neutrophils, 12% lymphocytes, 9% monocytes, and 29% eosinophils. Chemistry profile shows normal electrolytes with BUN of 15, creatinine 0.7, and a glucose of 92. Liver function tests are normal with a total protein of 5.5 and albumin of 2.5. IMPRESSION: The patient is doing very well, now postoperative day #5. Her epidural was (cut off). She is tolerating her regular diet and voiding well. She has not yet had a bowel movement. PLAN: The patient will be continued on her regular diet. I will order some oral pain medications in case she needs it once the epidural has completely worn off. She will be encouraged to be up out of bed, and we he will consider discharge tomorrow if she is doing well.
[2018-11-03] MEDS: NORCO, ANEXSIA 5/325MG TABLET (HYDROcodone/ACETAMINOPHEN) PO PRN (18:00)
[2018-11-03 22:00] VITALS: BP 157/74
[2018-11-04] MEDS: NORCO, ANEXSIA 5/325MG TABLET (HYDROcodone/ACETAMINOPHEN) PO PRN ×2 (00:13→08:43)
[2018-11-04 02:00] VITALS: BP 148/70
[2018-11-04] MEDS: FIORICET TAB PO PRN (05:58)
[2018-11-04] MEDS: LEVOTHYROXINE 50MCG TABLET (0.05MG) PO SCH (05:58)
[2018-11-04 06:00] VITALS: BP 143/75
[2018-11-04 09:00] VITALS: BP 140/90
[2018-11-04 09:04] VITALS: BP 140/90
[2018-11-04 09:29] VITALS: BP 140/90
[2018-11-04] MEDS: cloNIDine 0.1 MG TAB PO SCH (09:29)
[2018-11-04] MEDS: PANTOPRAZOLE 20 MG TAB PO SCH (09:29)
[2018-11-04] MEDS: VERAPAMIL 120 MG SR TAB PO SCH (09:30)
[2018-11-04] MEDS: MYRBETRIQ 25 MG PO SCH (09:31)
[2018-11-04 09:34] VITALS: BP 140/90
[2018-11-04] MEDS ORDERED: NORCOTAB PO (11:25)
--- NOTE | 2018-11-05 17:15 | IPN ---
DATE: 11/04/2018 HISTORY: Patient is postoperative day #6 from a selective vagotomy with antrectomy and Aleksander-en-Y gastrojejunostomy. She has been doing very well since surgery. She is on a regular diet, which she has tolerated well. She has not yet had a bowel movement but does not really have a strong urge. She is voiding without difficulty. She has still her Kodak drain in the right side of the abdomen, which goes across her duodenal stump to the area of the gastrojejunal anastomosis. Vital signs show that she has been afebrile over the past 24 hours. Her pulse is in the 70s. She has started taking a few [place] pills for pain relief. Blood pressure is good. Intake and output show that yesterday she had 2300 in with 1900 out. She had 40 out her drain yesterday and 30 this morning. PHYSICAL EXAMINATION: The patient is awake, alert, and appears comfortable. Heart exam shows a regular rate and rhythm. The lungs are clear. Examination of her back shows that she has a small crusted area, which may represent a blister at the site of her epidural catheter. This is actually inferior to where the puncture was from the epidural itself. This is about 2 cm in length x 5-7 mm in width. An occlusive dressing was applied by nursing. The abdomen is flat and thin. She has active bowel sounds. Her midline incision appears to be healing well with no drainage. The juliann remain in place. Her drain site in the right side of the abdomen is clean, and the drain has a minimal amount of serosanguineous fluid. Extremities are without edema. The patient has no new laboratory studies. IMPRESSION: The patient is doing very well now, 6 days postoperative from her partial gastrectomy in gastrojejunostomy. PLAN: I removed the patient's drain today, and she tolerated this well. She was instructed regarding local wound care. I removed half of her surgical juliann from the midline incision and redressed this, and she was again instructed regarding local wound care. I will discharge her home today. She will followup next week for removal of the remainder of her juliann and followup regarding the surgery. She will resume all of her usual medications. I will provide her with some hydrocodone/acetaminophen tablets to take on an as-needed basis, but she was encouraged to minimize the use of these as much as possible. I discussed with her that if she does not have a bowel movement within the next several days or if she develops the urge, that she should try some milk of magnesia or MiraLax as necessary. She can eat whatever she is comfortable with at this point. If she notes the onset of significant abdominal pain, fevers, chills, or signs of a wound infection, she should contact my office or return to the emergency department.
== END 2018-11-04 12:25 | disposition home or self-care (01) | DRG 328 ==
LOC: M OR 08:13 → M MS5PR 16:10
PROVIDERS: ADMIT Surgery; ATTEND Surgery
PROC: 0D160ZA Bypass Stomach to Jejunum, Open Approach (ICD-10-PCS; 2018-10-29)
PROC: 0DB60ZZ Excision of Stomach, Open Approach (ICD-10-PCS; 2018-10-29)
PROC: 008Q0ZZ Division of Vagus Nerve, Open Approach (ICD-10-PCS; principal; 2018-10-29 09:30)
DX: K31.5 Obstruction of duodenum (principal); K27.9 Peptic ulcer, site unspecified, unspecified as acute or chronic, without hemorrhage or perforation; Z88.2 Allergy status to sulfonamides; Z88.8 Allergy status to other drugs, medicaments and biological substances; Z79.899 Other long term (current) drug therapy; E03.9 Hypothyroidism, unspecified; K21.9 Gastro-esophageal reflux disease without esophagitis; Z85.44 Personal history of malignant neoplasm of other female genital organs; I10 Essential (primary) hypertension; R51 Headache

== ENCOUNTER → 2018-12-24 | Outpatient (REF) | payer MEDICARE ==
[~2018-12-24] MED LIST changes: +EPIN1DRO OU; +HYDR-3715 PO; -LR 1,000 ML IV ONE; +REFR0.5D8 OU; -cefoTEtan DISODIUM 2 GM in D5W MINI-BAG PLUS 50 ML IV ONE
[2018-12-24 18:12] LABS: BASO # 0.1 10^3/uL (0.0-0.2); BASO % 0.8 % (0.0-1.0); EOS # 1.2 10^3/uL (0.0-0.50); EOS % 17.1 % (0.0-3.0); HEMATOCRIT 35.2 % (36.0-47.0); HEMOGLOBIN 11.3 g/dl (12.0-15.5); LYMPH # 1.4 10^3/uL (1.5-4.5); LYMPH % 19.2 % (24.0-44.0); MEAN CORPUSCULAR HEMOGLOBIN 31.6 pg (27.0-33.0); MEAN CORPUSCULAR HGB CONC 32.1 g/dl (32.0-36.5); MEAN CORPUSCULAR VOLUME 98.3 fl (80.0-96.0); MONO # 0.7 10^3/uL (0.0-0.8); MONO % 9.3 % (0.0-5.0); NEUTROPHILS # 3.8 10^3/uL (1.8-7.7); NEUTROPHILS % 53.3 % (36.0-66.0); PLATELET COUNT, AUTOMATED 378 10^3/uL (150-450); RED BLOOD COUNT 3.58 10^6/uL (4.00-5.40); WHITE BLOOD COUNT 7.1 10^3/uL (4.0-10.0)
[2018-12-24 18:43] LABS: PERCENT SATURATION 15.4 % (13.2-45.0)
[2018-12-24 18:52] LABS: FOLATE 22.2 NG/ML
== END ==
LOC: M SFHCCLAY 10:09
PROVIDERS: ATTEND Family Medicine
DX: D50.9 Iron deficiency anemia, unspecified (principal)
CPT/HCPCS: 36415; 82607; 82746; 83550; 85025; 95115; G0463

== ENCOUNTER 2019-04-22 11:07 | Emergency (ER) | payer MEDICARE ==
[~2019-04-22] VITALS: Ht 157.5 cm; Wt 43.4 kg
[~2019-04-22 11:07] MED LIST changes: +ZANT150T40 PO; -ZANTTAB PO
[2019-04-22 12:03] LABS: BASO % 0.3 % (0.0-1.0); EOS % 0.2 % (0.0-3.0); HEMATOCRIT 41.4 % (36.0-47.0); HEMOGLOBIN 14.3 g/dl (12.0-15.5); LYMPH # 1.4 10^3/uL (1.5-4.5); LYMPH % 15.3 % (24.0-44.0); MEAN CORPUSCULAR HEMOGLOBIN 32.9 pg (27.0-33.0); MEAN CORPUSCULAR HGB CONC 34.5 g/dl (32.0-36.5); MEAN CORPUSCULAR VOLUME 95.4 fl (80.0-96.0); MONO # 0.8 10^3/uL (0.0-0.8); MONO % 9.1 % (0.0-5.0); NEUTROPHILS # 6.6 10^3/uL (1.8-7.7); NEUTROPHILS % 74.6 % (36.0-66.0); PLATELET COUNT, AUTOMATED 333 10^3/uL (150-450); RED BLOOD COUNT 4.34 10^6/uL (4.00-5.40); WHITE BLOOD COUNT 8.8 10^3/uL (4.0-10.0)
[2019-04-22 12:16] LABS: ALBUMIN 3.8 GM/DL (3.2-5.2); ALT/SGPT 38 U/L (12-78); BILIRUBIN,DIRECT < 0.1 MG/DL (0.0-0.2); BILIRUBIN,TOTAL 0.2 MG/DL (0.2-1.0); BLOOD UREA NITROGEN 27 MG/DL (7-18); CALCIUM LEVEL 9.5 MG/DL (8.8-10.2); CARBON DIOXIDE LEVEL 22 MEQ/L (21-32); CHLORIDE LEVEL 101 MEQ/L (98-107); CK-MB VALUE MASS 3.8 NG/ML (<3.6); CPK CREATINE PHOSPHOKINASE 183 U/L (26-192); GLOMERULAR FILTRATION RATE 56.8 (>32); GLUCOSE, FASTING 121 MG/DL (70-100); MB/CK RELATIVE INDEX 2.08 (< OR =4); POTASSIUM SERUM 3.2 MEQ/L (3.5-5.1); SODIUM LEVEL 135 MEQ/L (136-145); TOTAL PROTEIN 6.7 GM/DL (6.4-8.2); TROPONIN I 0.03 NG/ML (< 0.10)
[2019-04-22] MEDS ORDERED: NS 500 ML IV ONE (12:30)
[2019-04-22 14:10] LABS: MAGNESIUM LEVEL 2.2 MG/DL (1.8-2.4)
[2019-04-22] MEDS ORDERED: NS 1,000 ML IV ONE (14:15)
[2019-04-22] MEDS ORDERED: ACETAMINOPHEN TAB 650MG DOSE (2X325MG) PO ONE (15:00)
[2019-04-22 15:11] LABS: AMYLASE 70 U/L (25-115)
--- NOTE | 2019-04-22 18:36 | REP ---
CT HEAD WITHOUT CONTRAST: HISTORY: Headaches. Areas of decreased attentuation are present in the periventricular white matter. This represents small vessel ischemic disease. There is no intraparenchymal hemorrhage, mass, or midline shift. The ventricular system and cortical sulci are dilated consistent with mild volume loss. There is no extracerebral collection. The visualized sinuses are clear. IMPRESSION: 1. Small vessel ischemic disease. 2. Mild volume loss. Unreviewed
[2019-04-22] MEDS ORDERED: CEPHALEXIN 500 MG CAP PO ONE (18:45)
--- NOTE | 2019-04-22 18:45 | REPVR ---
EXAM: US UNLISTED PROCEDURE DX OR IR EXAM DATE/TIME: 04/22/2019 6:21 PM CLINICAL HISTORY: 78 years old, female; Other: RT cheek/parotid area swelling; Additional info: Right parotid swelling TECHNIQUE: Imaging protocol: US UNLISTED PROCEDURE DX OR IR COMPARISON: CT Head without contrast 04/22/2019 2:59 PM FINDINGS: Submandibular/Parotid glands: Right parotid and submandibular gland within normal limits. Soft tissues: Imaging in the region of soft tissue swelling in the right buccal region does not demonstrate any abnormality. IMPRESSION: Normal study. Electronically signed by: Chao Marcial On 04/22/2019 18:44:41 PM
[2019-04-22] MEDS ORDERED: KEFL500C17 PO (18:51)
[2019-04-22 19:00] VITALS: BP 159/81
--- NOTE | 2019-04-22 19:02 | REP ---
MAXILLOFACIAL CT WITHOUT CONTRAST: HISTORY: Right facial swelling. The sinuses are clear. The osteomeatal units are patent. The middle and inferior turbinates are partially paradoxical. The nasal septum is midline. The cribriform plate, medial shankar of the orbits and optic canals are intact. The naso, and oropharynx are normal in appearance. IMPRESSION: There is no acute or chronic sinusitis. Unreviewed
--- NOTE | 2019-04-23 08:02 | ECGEPIP ---
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
== END 2019-04-22 19:24 | disposition home or self-care (01) ==
LOC: M ED 11:07
DX: L03.211 Cellulitis of face (principal); I95.1 Orthostatic hypotension; I10 Essential (primary) hypertension; E03.9 Hypothyroidism, unspecified; D50.9 Iron deficiency anemia, unspecified; Z79.899 Other long term (current) drug therapy; Z79.890 Hormone replacement therapy; Z86.14 Personal history of Methicillin resistant Staphylococcus aureus infection; Z88.1 Allergy status to other antibiotic agents; Z88.2 Allergy status to sulfonamides; Z88.5 Allergy status to narcotic agent; Z88.8 Allergy status to other drugs, medicaments and biological substances; Z87.891 Personal history of nicotine dependence

== ENCOUNTER → 2019-09-21 | Outpatient (CLI) | payer MEDICARE ==
[~2019-09-21] MED LIST changes: +KEFL500C17 PO
--- NOTE | 2019-09-21 13:17 | REPMRS ---
Patient History The patient states she has not had a clinical breast exam in over a year. No known family history of cancer. Took estrogen for 20 years beginning at age 48. Digital Woman Screen Mammo: September 21, 2019 - Exam #: [id number] Bilateral CC and MLO view(s) were taken. Technologist: Faby Rausch, Technologist Prior study comparison: August 11, 2018, bilateral digital woman screen mammo performed at [facility]. June 10, 2017, digital woman screen mammo performed at [facility]. June 04, 2016, digital woman screen mammo performed at [facility]. FINDINGS: There are scattered fibroglandular densities. There has been no change in the appearance of the mammogram from the prior studies. There is a mild amount of scattered fibroglandular density which is fairly symmetric. There is no interval development of dominant mass, architectural distortion, or grouped microcalcification suggestive of malignancy. 3-D tomosynthesis shows no additional findings. Assessment: BI-RADS/ACR category 1 mammogram. Negative Mammogram. Recommendation Routine screening mammogram of both breasts in 1 year (for women over age 40). This patient's Lifetime Breast Cancer Risk is estimated at 1.4 %. This mammogram was interpreted with the aid of an FDA-approved computer-aided dectection system. Electronically Signed By: Renny Donald MD 09/21/19 [id number]
== END ==
LOC: M WHC 10:58
PROVIDERS: ATTEND Obstetrics & Gynecology
DX: Z12.31 Encounter for screening mammogram for malignant neoplasm of breast (principal); Z92.29 Personal history of other drug therapy

== ENCOUNTER → 2019-11-02 | Outpatient (REF) | payer MEDICARE ==
[2019-11-03 12:26] LABS: BASO # 0.1 10^3/uL (0.0-0.2); BASO % 0.7 % (0.0-1.0); EOS # 1.5 10^3/uL (0.0-0.5); EOS % 14.4 % (0.0-3.0); HEMATOCRIT 24.8 % (36.0-47.0); HEMOGLOBIN 7.3 g/dl (12.0-15.5); LYMPH # 2.1 10^3/uL (1.5-5.0); LYMPH % 19.7 % (24.0-44.0); MEAN CORPUSCULAR HGB CONC 29.4 g/dl (32.0-36.5); MEAN CORPUSCULAR VOLUME 91.9 fl (80.0-96.0); MONO % 9.2 % (0.0-5.0); NEUTROPHILS # 5.8 10^3/uL (1.5-8.5); NEUTROPHILS % 55.6 % (36.0-66.0); PLATELET COUNT, AUTOMATED 621 10^3/uL (150-450); WHITE BLOOD COUNT 10.4 10^3/uL (4.0-10.0)
[2019-11-03 12:31] LABS: ALBUMIN 2.8 GM/DL (3.2-5.2); ALT/SGPT 26 U/L (12-78); BLOOD UREA NITROGEN 28 MG/DL (7-18); CARBON DIOXIDE LEVEL 27 MEQ/L (21-32); CHLORIDE LEVEL 107 MEQ/L (98-107); CREATININE FOR GFR 0.77 MG/DL (0.55-1.30); GLOMERULAR FILTRATION RATE > 60.0 (>32); GLUCOSE, FASTING 82 MG/DL (70-100); POTASSIUM SERUM 5.3 MEQ/L (3.5-5.1); SODIUM LEVEL 138 MEQ/L (136-145); TOTAL PROTEIN 5.2 GM/DL (6.4-8.2)
[2019-11-03 13:32] LABS: BILIRUBIN,TOTAL 0.3 MG/DL (0.2-1.0)
== END ==
LOC: M SFHCCLAY 13:59
PROVIDERS: ATTEND Family Medicine
DX: I47.1 Supraventricular tachycardia (principal)
CPT/HCPCS: 36415; 80053; 85025; 95115; G0463

== ENCOUNTER → 2019-11-21 | Outpatient (REF) | payer MEDICARE ==
[2019-11-21 16:59] LABS: BASO # 0.1 10^3/uL (0.0-0.2); EOS # 0.3 10^3/uL (0.0-0.5); EOS % 3.2 % (0.0-3.0); HEMATOCRIT 29.2 % (36.0-47.0); HEMOGLOBIN 8.7 g/dl (12.0-15.5); LYMPH # 1.2 10^3/uL (1.5-5.0); LYMPH % 13.6 % (24.0-44.0); MEAN CORPUSCULAR HGB CONC 29.8 g/dl (32.0-36.5); MEAN CORPUSCULAR VOLUME 87.4 fl (80.0-96.0); MONO # 0.5 10^3/uL (0.0-0.8); MONO % 5.8 % (0.0-5.0); NEUTROPHILS # 6.8 10^3/uL (1.5-8.5); PLATELET COUNT, AUTOMATED 805 10^3/uL (150-450); RED BLOOD COUNT 3.34 10^6/uL (4.00-5.40)
[2019-11-21 17:08] LABS: FERRITIN 7 NG/ML (8-252); IRON (FE) 13 UG/DL (50-170); PERCENT SATURATION 3.1 % (13.2-45.0); TOTAL IRON BINDING CAPACITY 415 UG/DL (250-450)
[2019-11-21 17:13] LABS: FOLATE > 24.0 NG/ML; VITAMIN B12 LEVEL 472 PG/ML
== END ==
LOC: M SFHCCLAY 10:36
PROVIDERS: ATTEND Family Medicine
DX: J32.9 Chronic sinusitis, unspecified (principal); D64.9 Anemia, unspecified
CPT/HCPCS: 36415; 82607; 82728; 82746; 83550; 85025; 85046; G0463

== ENCOUNTER → 2019-12-26 | Outpatient (REF) | payer MEDICARE ==
[~2019-12-26] MED LIST changes: +HM S0.65; +MULTCAP PO
[2019-12-26 16:16] LABS: BASO # 0.1 10^3/uL (0.0-0.2); BASO % 0.8 % (0.0-1.0); HEMATOCRIT 28.4 % (36.0-47.0); HEMOGLOBIN 8.4 g/dl (12.0-15.5); LYMPH # 1.6 10^3/uL (1.5-5.0); LYMPH % 21.2 % (24.0-44.0); MEAN CORPUSCULAR HEMOGLOBIN 26.7 pg (27.0-33.0); MEAN CORPUSCULAR HGB CONC 29.6 g/dl (32.0-36.5); MEAN CORPUSCULAR VOLUME 90.2 fl (80.0-96.0); MONO # 0.7 10^3/uL (0.0-0.8); MONO % 8.8 % (0.0-5.0); NEUTROPHILS # 4.1 10^3/uL (1.5-8.5); NEUTROPHILS % 54.9 % (36.0-66.0); PLATELET COUNT, AUTOMATED 448 10^3/uL (150-450); RED BLOOD COUNT 3.15 10^6/uL (4.00-5.40); WHITE BLOOD COUNT 7.4 10^3/uL (4.0-10.0)
== END ==
LOC: M SFHCCLAY 12:11
PROVIDERS: ATTEND Family Medicine
DX: S40.262A Insect bite (nonvenomous) of left shoulder, initial encounter (principal); W57.XXXA Bitten or stung by nonvenomous insect and other nonvenomous arthropods, initial encounter; Y92.9 Unspecified place or not applicable; D50.9 Iron deficiency anemia, unspecified
CPT/HCPCS: 82274; 85025; G0463

== ENCOUNTER → 2020-01-10 | Outpatient (CLI) | payer MEDICARE | LOC: M LABSMTC 10:30 | PROVIDERS: ATTEND Anesthesiology | DX: Z01.818 Encounter for other preprocedural examination (principal); Z11.59 Encounter for screening for other viral diseases ==

== ENCOUNTER 2020-01-11 07:08 | Day surgery (SDC) | payer MEDICARE ==
[~2020-01-11] VITALS: Ht 157.5 cm; Wt 48.5 kg
[~2020-01-11 07:08] MED LIST changes: +LR 1,000 ML IV ONE
[2020-01-11] MEDS ORDERED: LIDOCAINE 2% 100MG/5ML SDV (FOR ANES.) As Ordered ONE (08:22)
[2020-01-11] MEDS ORDERED: propofoL 200 MG/20 ML VIAL As Ordered ONE ×2 (08:22→09:35)
[2020-01-11] MEDS ORDERED: fentaNYL 100 MCG/2 ML INJECTION (J3010) As Ordered ONE (08:22)
[2020-01-11] MEDS ORDERED: PHENYLephrine HCL 500 MCG/5 ML (100MCG/ML) SYRINGE (J2370) As Ordered ONE (09:04)
[2020-01-11] MEDS ORDERED: ePHEDrine SULFATE 25 MG/5 ML(5MG/ML) SYRINGE As Ordered ONE (09:04)
--- NOTE | 2020-01-11 09:52 | ROOR ---
Patient Name: Brook Vizcaino Procedure Date: 01/11/2020 8:18 AM Date of : 1940 Age: 79 Room: Main OR Gender: Female Note Status: Finalized Procedure: Upper GI endoscopy Indications: Suspected upper gastrointestinal bleeding in patient with unexplained iron deficiency anemia, Personal history of gastrectomy. Patient has had a partial gastrectomy with samuel-en-y gastrojejunostomy Providers: Bogdan Yen MD Referring MD: Ryan Rodgers MD Requesting Provider: Medicines: Monitored Anesthesia Care Complications: No immediate complications. Procedure: Pre-Anesthesia Assessment: - Prior to the procedure, a History and Physical was performed, and patient medications and allergies were reviewed. The patient is competent. The risks and benefits of the procedure and the sedation options and risks were discussed with the patient. All questions were answered and informed consent was obtained. Patient identification and proposed procedure were verified by the physician, the nurse and the rheumatology specialist in the procedure room. Mental Status Examination: alert and oriented. Airway Examination: normal oropharyngeal airway and neck mobility. Prophylactic Antibiotics: The patient does not require prophylactic antibiotics. Prior Anticoagulants: The patient has taken no previous anticoagulant or antiplatelet agents. ASA Grade Assessment: III - A patient with severe systemic disease. After reviewing the risks and benefits, the patient was deemed in satisfactory condition to undergo the procedure. The anesthesia plan was to use moderate sedation / analgesia (conscious sedation). Immediately prior to administration of medications, the patient was re-assessed for adequacy to receive sedatives. The heart rate, respiratory rate, oxygen saturations, blood pressure, adequacy of pulmonary ventilation, and response to care were monitored throughout the procedure. The physical status of the patient was re-assessed after the procedure. The Endoscope was introduced through the mouth, and advanced to the efferent jejunal loop. The upper GI endoscopy was accomplished without difficulty. The patient tolerated the procedure well. Findings: The examined esophagus was normal. The Z-line was irregular. 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 The gastrojejunal anastomosis was characterized by healthy appearing mucosa. This was traversed. The efferent limb was examined 20 cm from the anastomosis and was characterized by healthy appearing mucosa. The exam of the stomach was otherwise normal. Impression: - Normal esophagus. - Z-line irregular. 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 - No specimens collected. Recommendation: - Discharge patient to home. - Resume previous diet. - Continue present medications. - Return to primary care physician PRN. Bogdan Yen MD Bogdan Yen MD 01/11/2020 9:51:42 AM Electronically signed by Bogdan Yen MD Number of Addenda: 0 Note Initiated On: 01/11/2020 8:18 AM Estimated Blood Loss: Estimated blood loss: none.
--- NOTE | 2020-01-11 09:56 | ROOR ---
Patient Name: Brook Vizcaino Procedure Date: 01/11/2020 8:20 AM Date of : 1940 Age: 79 Room: Main OR Gender: Female Note Status: Finalized Procedure: Colonoscopy Indications: Unexplained iron deficiency anemia Providers: Bogdan Yen MD Referring MD: Ryan Rodgers MD Requesting Provider: Medicines: Monitored Anesthesia Care Complications: No immediate complications. Procedure: Pre-Anesthesia Assessment: - Prior to the procedure, a History and Physical was performed, and patient medications and allergies were reviewed. The patient is competent. The risks and benefits of the procedure and the sedation options and risks were discussed with the patient. All questions were answered and informed consent was obtained. Patient identification and proposed procedure were verified by the physician, the nurse and the automobile relocation engineer in the procedure room. Mental Status Examination: normal. Airway Examination: normal oropharyngeal airway and neck mobility. Prophylactic Antibiotics: The patient does not require prophylactic antibiotics. Prior Anticoagulants: The patient has taken no previous anticoagulant or antiplatelet agents. ASA Grade Assessment: III - A patient with severe systemic disease. After reviewing the risks and benefits, the patient was deemed in satisfactory condition to undergo the procedure. The anesthesia plan was to use monitored anesthesia care (MAC). Immediately prior to administration of medications, the patient was re-assessed for adequacy to receive sedatives. The heart rate, respiratory rate, oxygen saturations, blood pressure, adequacy of pulmonary ventilation, and response to care were monitored throughout the procedure. The physical status of the patient was re-assessed after the procedure. The Colonoscope was introduced through the anus and advanced to the cecum, identified by the ileocecal valve. The colonoscopy was somewhat difficult due to a tortuous colon. Successful completion of the procedure was aided by using manual pressure. The patient tolerated the procedure well. The quality of the bowel preparation was excellent. Findings: The perianal and digital rectal examinations were normal. Multiple medium-mouthed diverticula were found in the sigmoid colon. The exam was otherwise without abnormality. Impression: - Diverticulosis in the sigmoid colon. - The examination was otherwise normal. - No specimens collected. Recommendation: - Discharge patient to home. - Resume previous diet. - Continue present medications. - Return to primary care physician PRN. Bogdan Yen MD Bogdan Yen MD 01/11/2020 9:56:18 AM Electronically signed by Bogdan Yen MD Number of Addenda: 0 Note Initiated On: 01/11/2020 8:20 AM Estimated Blood Loss: Estimated blood loss: none.
[2020-01-11 10:20] VITALS: BP 142/61
[2020-01-11] MEDS ORDERED: ACETAMINOPHEN 1000MG 100ML IV BTL (OFIRMEV) (J0131 PER 10MG) As Ordered ONE (10:29)
[2020-01-11] MEDS ORDERED: ESMOLOL INJ 100MG/10ML VIAL As Ordered ONE (10:41)
== END 2020-01-11 10:30 | disposition home or self-care (01) ==
LOC: M SDC 07:08
PROVIDERS: ATTEND Surgery
DX: K57.30 Diverticulosis of large intestine without perforation or abscess without bleeding (principal); D50.9 Iron deficiency anemia, unspecified; K22.8 Other specified diseases of esophagus; Z90.3 Acquired absence of stomach [part of]; Z93.1 Gastrostomy status; Z98.84 Bariatric surgery status; R19.5 Other fecal abnormalities; K58.9 Irritable bowel syndrome, unspecified; I47.2 Ventricular tachycardia; N32.81 Overactive bladder; I10 Essential (primary) hypertension; E03.9 Hypothyroidism, unspecified; G43.909 Migraine, unspecified, not intractable, without status migrainosus; Z85.42 Personal history of malignant neoplasm of other parts of uterus; Z87.891 Personal history of nicotine dependence; Z88.1 Allergy status to other antibiotic agents; Z88.5 Allergy status to narcotic agent; Z88.2 Allergy status to sulfonamides; Z88.8 Allergy status to other drugs, medicaments and biological substances; Z79.899 Other long term (current) drug therapy
CPT/HCPCS: 43235; 45378; J2370; J3010

== ENCOUNTER → 2020-02-29 | Outpatient (REF) | payer MEDICARE ==
[~2020-02-29] MED LIST changes: -LR 1,000 ML IV ONE
[2020-02-29 16:52] LABS: BASO # 0.1 10^3/uL (0.0-0.2); EOS % 15.7 % (0.0-3.0); HEMATOCRIT 38.2 % (36.0-47.0); HEMOGLOBIN 12.7 g/dl (12.0-15.5); LYMPH # 1.7 10^3/uL (1.5-5.0); LYMPH % 27.6 % (24.0-44.0); MEAN CORPUSCULAR HEMOGLOBIN 32.7 pg (27.0-33.0); MEAN CORPUSCULAR HGB CONC 33.2 g/dl (32.0-36.5); MEAN CORPUSCULAR VOLUME 98.5 fl (80.0-96.0); MONO # 0.6 10^3/uL (0.0-0.8); MONO % 9.9 % (0.0-5.0); NEUTROPHILS # 2.8 10^3/uL (1.5-8.5); NEUTROPHILS % 45.6 % (36.0-66.0); PLATELET COUNT, AUTOMATED 295 10^3/uL (150-450); RED BLOOD COUNT 3.88 10^6/uL (4.00-5.40); WHITE BLOOD COUNT 6.1 10^3/uL (4.0-10.0)
[2020-02-29 17:04] LABS: ALBUMIN 3.7 GM/DL (3.2-5.2); ALT/SGPT 36 U/L (12-78); BILIRUBIN,TOTAL 0.1 MG/DL (0.2-1.0); BLOOD UREA NITROGEN 22 MG/DL (7-18); CALCIUM LEVEL 8.6 MG/DL (8.8-10.2); CARBON DIOXIDE LEVEL 26 MEQ/L (21-32); CHLORIDE LEVEL 110 MEQ/L (98-107); CREATININE FOR GFR 0.79 MG/DL (0.55-1.30); FREE T4 0.99 NG/DL (0.76-1.46); GLOMERULAR FILTRATION RATE > 60.0 (>32); GLUCOSE, FASTING 91 MG/DL (70-100); POTASSIUM SERUM 4.6 MEQ/L (3.5-5.1); SODIUM LEVEL 141 MEQ/L (136-145); TOTAL PROTEIN 6.5 GM/DL (6.4-8.2)
== END ==
LOC: M SFHCCLAY 11:06
PROVIDERS: ATTEND Family Medicine
DX: D50.9 Iron deficiency anemia, unspecified (principal); I47.1 Supraventricular tachycardia; E03.9 Hypothyroidism, unspecified
CPT/HCPCS: 80053; 84439; 84443; 85025; 95115; G0463

== ENCOUNTER → 2020-08-16 | Outpatient (REF) | payer MEDICARE ==
[2020-08-16 17:34] LABS: HEMATOCRIT 39.1 % (36.0-47.0); HEMOGLOBIN 12.9 g/dl (12.0-15.5); MEAN CORPUSCULAR HEMOGLOBIN 34.1 pg (27.0-33.0); MEAN CORPUSCULAR VOLUME 103.4 fl (80.0-96.0); PLATELET COUNT, AUTOMATED 273 10^3/uL (150-450); RED BLOOD COUNT 3.78 10^6/uL (4.00-5.40); WHITE BLOOD COUNT 9.2 10^3/uL (4.0-10.0)
[2020-08-16 18:49] LABS: BLOOD UREA NITROGEN 30 MG/DL (7-18); CALCIUM LEVEL 8.7 MG/DL (8.8-10.2); CARBON DIOXIDE LEVEL 30 MEQ/L (21-32); CHLORIDE LEVEL 103 MEQ/L (98-107); CREATININE FOR GFR 0.82 MG/DL (0.55-1.30); GLOMERULAR FILTRATION RATE > 60.0 (>32); GLUCOSE, FASTING 95 MG/DL (70-100); POTASSIUM SERUM 4.3 MEQ/L (3.5-5.1); SODIUM LEVEL 138 MEQ/L (136-145)
== END ==
LOC: M SFHCCLAY 10:44
PROVIDERS: ATTEND Family Medicine
DX: I11.0 Hypertensive heart disease with heart failure (principal)

== ENCOUNTER → 2020-09-13 | Outpatient (CLI) | payer MEDICARE ==
[2020-09-13 13:29] LABS: BLOOD UREA NITROGEN 26 MG/DL (7-18); CALCIUM LEVEL 8.5 MG/DL (8.8-10.2); CARBON DIOXIDE LEVEL 30 MEQ/L (21-32); CHLORIDE LEVEL 105 MEQ/L (98-107); CREATININE FOR GFR 0.82 MG/DL (0.55-1.30); GLOMERULAR FILTRATION RATE > 60.0 (>32); GLUCOSE, FASTING 108 MG/DL (70-100); NT-PRO BNP 1300 PG/ML (<450); POTASSIUM SERUM 3.7 MEQ/L (3.5-5.1); SODIUM LEVEL 140 MEQ/L (136-145)
== END ==
LOC: M PLALAB 10:59
PROVIDERS: ATTEND Internal Medicine Cardiovascular Disease
DX: I50.42 Chronic combined systolic (congestive) and diastolic (congestive) heart failure (principal)

== ENCOUNTER → 2020-09-26 | Outpatient (CLI) | payer MEDICARE ==
--- NOTE | 2020-09-26 11:47 | REPMRS ---
Patient History The patient states she has not had a clinical breast exam in over a year. No known family history of cancer. Took estrogen for 20 years beginning at age 48. 3D TOMOSYNTHESIS WAS PERFORMED. The Kevin Braga lifetime risk for breast cancer is1.2 %. Volpara breast density c. Digital Woman Screen Mammo: September 26, 2020 - Exam #: [id number] Bilateral CC and MLO view(s) were taken. Technologist: Deena Crowell, Technologist Prior study comparison: September 21, 2019, bilateral digital woman screen mammo performed at [facility]. August 11, 2018, bilateral digital woman screen mammo performed at [facility]. FINDINGS: There are scattered fibroglandular densities. There has been no change in the appearance of the mammogram from the prior studies. There is a mild amount of residual fibroglandular tissue which is fairly symmetric. There is no interval development of dominant mass, architectural distortion, or clustered microcalcification suggestive of malignancy. Assessment: BI-RADS/ACR category 1 mammogram. Negative Mammogram. Recommendation Routine screening mammogram in 1 year (for women over age 40). This mammogram was interpreted with the aid of an FDA-approved computer-aided dectection system. Electronically Signed By: Kristian Zuniga MD 09/26/20 [id number]
--- NOTE | 2020-09-26 11:54 | DEXAMM ---
INDICATION: POST MENOPAUSAL/Z78.0. COMPARISON: 06/10/2017 as well as other prior exams. TECHNIQUE: Bone density was measured using dual-energy x-ray absorptiometry (DEXA). FINDINGS: AP SPINE L1-L4 BMD 1.237 g/cm2 Young Adult T-Score 0.3 Age Matched Z-Score 2.2. LT FEMUR, TOTAL BMD 0.794 g/cm2 Young Adult T-Score -1.7 Age Matched Z-Score 0.4. LT NECK BMD 0.776 g/cm2 Young Adult T-Score -1.9 Age Matched Z-Score 0.4. RT FEMUR, TOTAL BMD 0.854 g/cm2 Young Adult T-Score -1.2 Age Matched Z-Score 0.9. RT NECK BMD 0.785 g/cm2 Young Adult T-Score -1.8 Age Matched Z-Score 0.4. IMPRESSION: There is normal bone density of the spine. There is low bone density of the left hip. There is low bone density of the right hip. The density of the spine has decreased 12.1% since the initial exam on 06/25/2000. The density of the spine decreased 6.2% since most recent exam on 06/10/2017. The density of the left hip has decreased 25.7% since initial exam on 06/25/2000. The density of the left hip has decreased 11.7% since most recent exam on 06/10/2017. The density of the right hip has decreased 24.8% since the initial exam on 06/25/2000. The density of the right hip has decreased 12.2% since the most recent exam on 06/10/2017. FOLLOW-UP: Recommendation for the next bone density exam: 2 years. <Electronically signed by Kristian Zuniga > 09/26/20 [id number]
== END ==
LOC: M WHC 10:49
DX: Z12.31 Encounter for screening mammogram for malignant neoplasm of breast (principal); Z78.0 Asymptomatic menopausal state

== ENCOUNTER → 2020-11-22 | Outpatient (REF) | payer MEDICARE ==
[2020-11-23 13:58] LABS: ALBUMIN 3.3 GM/DL (3.2-5.2); BILIRUBIN,DIRECT < 0.1 MG/DL (0.0-0.2); BILIRUBIN,TOTAL 0.3 MG/DL (0.2-1.0); BLOOD UREA NITROGEN 16 MG/DL (7-18); CALCIUM LEVEL 8.9 MG/DL (8.8-10.2); CARBON DIOXIDE LEVEL 29 MEQ/L (21-32); CHLORIDE LEVEL 106 MEQ/L (98-107); CREATININE FOR GFR 0.76 MG/DL (0.55-1.30); GLOMERULAR FILTRATION RATE > 60.0 (>32); GLUCOSE, FASTING 94 MG/DL (70-100); NT-PRO BNP 1244 PG/ML (<450); PHOSPHORUS LEVEL 3.7 MG/DL (2.5-4.9); POTASSIUM SERUM 3.5 MEQ/L (3.5-5.1); SODIUM LEVEL 140 MEQ/L (136-145)
== END ==
LOC: M LABDRAWC 11:21
PROVIDERS: ATTEND Internal Medicine Cardiovascular Disease
DX: I50.42 Chronic combined systolic (congestive) and diastolic (congestive) heart failure (principal)

== ENCOUNTER → 2020-11-22 | Outpatient (REF) | payer MEDICARE ==
[2020-11-23 14:02] LABS: FREE T4 1.28 NG/DL (0.76-1.46); THYROID STIMULATING HORMONE 3.96 uIU/ML (0.358-3.740)
== END ==
LOC: M SFHCCLAY 14:08
PROVIDERS: ATTEND Family Medicine
DX: E03.9 Hypothyroidism, unspecified (principal)
CPT/HCPCS: 84439; 84443; 95115; G0463

== ENCOUNTER → 2020-12-05 | Outpatient (CLI) | payer MEDICARE ==
--- NOTE | 2020-12-05 18:05 | REP ---
INDICATION: THYROID NODULE. COMPARISON: None. TECHNIQUE: Real-time sonographic evaluation of thyroid performed. FINDINGS: Thyroid is normal in size. Right lobe measures 3.8 x 1.1 x 1.4 cm left lobe 4.0 x 1.0 x 1.2 cm. Scattered tiny subcentimeter nodules in both lobes are not suspicious. The largest on the right is in the mid aspect measuring 3 mm maximally a and on the left in the mid aspect the largest measures 2 mm maximally. IMPRESSION: No significant thyroid enlargement. Non suspicious tiny nodules are seen in both lobes of the thyroid, 3 mm in maximum diameter. <Electronically signed by Kristian Zuniga > 12/05/20 [id number]
== END ==
LOC: M RAD 15:24
PROVIDERS: ATTEND Family Medicine
DX: E04.1 Nontoxic single thyroid nodule (principal)

== ENCOUNTER → 2021-02-26 | Outpatient (REF) | payer MEDICARE ==
[2021-02-26 16:31] LABS: FREE T4 1.26 NG/DL (0.76-1.46); THYROID STIMULATING HORMONE 5.08 uIU/ML (0.358-3.740)
== END ==
LOC: M SFHCCLAY 10:48
PROVIDERS: ATTEND Family Medicine
DX: E03.9 Hypothyroidism, unspecified (principal)
CPT/HCPCS: 84439; 84443; 95115; G0463

== ENCOUNTER → 2021-04-09 | Outpatient (REF) | payer MEDICARE ==
[2021-04-09 16:46] LABS: BLOOD UREA NITROGEN 21 MG/DL (7-18); CALCIUM LEVEL 8.9 MG/DL (8.8-10.2); CARBON DIOXIDE LEVEL 30 MEQ/L (21-32); CHLORIDE LEVEL 107 MEQ/L (98-107); GLOMERULAR FILTRATION RATE > 60.0 (>32); GLUCOSE, FASTING 86 MG/DL (70-100); NT-PRO BNP 792 PG/ML (<450); POTASSIUM SERUM 4.8 MEQ/L (3.5-5.1); SODIUM LEVEL 140 MEQ/L (136-145)
== END ==
LOC: M LABDRAWC 15:45
PROVIDERS: ATTEND Internal Medicine Cardiovascular Disease
DX: I50.42 Chronic combined systolic (congestive) and diastolic (congestive) heart failure (principal)

== ENCOUNTER → 2021-08-05 | Outpatient (REF) | payer MEDICARE ==
[~2021-08-05] MED LIST changes: +VERA240T65 PO; -VERA24TASA PO
[2021-08-05 16:39] LABS: BLOOD UREA NITROGEN 24 MG/DL (7-18); CALCIUM LEVEL 8.7 MG/DL (8.8-10.2); CARBON DIOXIDE LEVEL 29 MEQ/L (21-32); CHLORIDE LEVEL 108 MEQ/L (98-107); CREATININE FOR GFR 0.76 MG/DL (0.55-1.30); GLOMERULAR FILTRATION RATE > 60.0 (>32); GLUCOSE, FASTING 71 MG/DL (70-100); NT-PRO BNP 855 PG/ML (<450); POTASSIUM SERUM 4.1 MEQ/L (3.5-5.1); SODIUM LEVEL 143 MEQ/L (136-145)
== END ==
LOC: M LABDRAWC 15:44
PROVIDERS: ATTEND Internal Medicine Cardiovascular Disease
DX: I50.42 Chronic combined systolic (congestive) and diastolic (congestive) heart failure (principal)

== ENCOUNTER → 2021-08-27 | Outpatient (REF) ==
[2021-08-27 13:04] LABS: CREATININE FOR GFR 0.97 MG/DL (0.55-1.30); GLOMERULAR FILTRATION RATE 58.5 (>32); POTASSIUM SERUM 3.6 MEQ/L (3.5-5.1); THYROID STIMULATING HORMONE 6.86 uIU/ML (0.358-3.740)
== END ==
LOC: SKLAB4 10:45
PROVIDERS: ATTEND Internal Medicine
DX: I25.10 Atherosclerotic heart disease of native coronary artery without angina pectoris (principal); I50.9 Heart failure, unspecified; E03.9 Hypothyroidism, unspecified

== ENCOUNTER → 2021-08-29 | Outpatient (REF) ==
[2021-08-29 11:44] LABS: HEMATOCRIT 36.8 % (36.0-47.0); HEMOGLOBIN 12.2 g/dl (12.0-15.5); MEAN CORPUSCULAR HEMOGLOBIN 32.5 pg (27.0-33.0); MEAN CORPUSCULAR HGB CONC 33.2 g/dl (32.0-36.5); MEAN CORPUSCULAR VOLUME 98.1 fl (80.0-96.0); PLATELET COUNT, AUTOMATED 219 10^3/uL (150-450); RED BLOOD COUNT 3.75 10^6/uL (4.00-5.40); WHITE BLOOD COUNT 6.9 10^3/uL (4.0-10.0)
[2021-08-29 12:09] LABS: BLOOD UREA NITROGEN 40 MG/DL (7-18); CARBON DIOXIDE LEVEL 30 MEQ/L (21-32); CHLORIDE LEVEL 99 MEQ/L (98-107); GLOMERULAR FILTRATION RATE > 60.0 (>32); GLUCOSE, FASTING 131 MG/DL (70-100); POTASSIUM SERUM 3.5 MEQ/L (3.5-5.1); SODIUM LEVEL 136 MEQ/L (136-145)
[2021-08-29 17:11] LABS: APPEARANCE, URINE CLOUDY (CLEAR); BACTERIA, URINE AUTO NEGATIVE (NEGATIVE); BILIRUBIN, URINE AUTO NEGATIVE (NEGATIVE); BLOOD, URINE BLOOD 2+ (NEGATIVE); COLOR, URINE YELLOW (YELLOW); GLUCOSE, URINE (UA) AUTO NEGATIVE (NEGATIVE); KETONE, URINE AUTO NEGATIVE (NEGATIVE); LEUKOCYTE ESTERASE, URINE AUTO 3+ (NEGATIVE); MUCUS, URINE SMALL (NEGATIVE); NITRITE, URINE AUTO POSITIVE (NEGATIVE); PROTEIN, URINE AUTO NEGATIVE (NEGATIVE); RBC, URINE AUTO 2 /HPF (0-3); SQUAMOUS EPITHELIAL CELL UR AU 2 /HPF (0-6); UROBILINOGEN, URINE AUTO 0.2 mg/dL (0.0-2.0); WBC, URINE AUTO 138 /HPF (0-3)
== END ==
LOC: SKLAB4 10:44
PROVIDERS: ATTEND Internal Medicine
DX: R31.9 Hematuria, unspecified (principal)

== ENCOUNTER → 2021-09-04 | Outpatient (REF) | LOC: SKLAB4 06:20 | PROVIDERS: ATTEND Internal Medicine | DX: Z20.822 Contact with and (suspected) exposure to COVID-19 (principal) ==

== ENCOUNTER → 2021-09-11 | Outpatient (REF) | LOC: SKLAB4 06:31 | PROVIDERS: ATTEND Internal Medicine | DX: Z20.822 Contact with and (suspected) exposure to COVID-19 (principal) ==

== ENCOUNTER → 2021-09-18 | Outpatient (REF) | payer MEDICARE | LOC: SKLAB4 07:00 | PROVIDERS: ATTEND Internal Medicine | DX: Z20.822 Contact with and (suspected) exposure to COVID-19 (principal) ==

== ENCOUNTER → 2021-09-25 | Outpatient (CLI) | payer MEDICARE | LOC: M RAD 11:15 | PROVIDERS: ATTEND Student in an Organized Health Care Education/Training Program | DX: I61.1 Nontraumatic intracerebral hemorrhage in hemisphere, cortical (principal) ==

== ENCOUNTER → 2021-12-05 | Outpatient (REF) | payer MEDICARE ==
[2021-12-05 10:26] LABS: HEMATOCRIT 40.4 % (36.0-47.0); HEMOGLOBIN 13.4 g/dl (12.0-15.5); MEAN CORPUSCULAR HEMOGLOBIN 34.1 pg (27.0-33.0); MEAN CORPUSCULAR HGB CONC 33.2 g/dl (32.0-36.5); MEAN CORPUSCULAR VOLUME 102.8 fl (80.0-96.0); PLATELET COUNT, AUTOMATED 270 10^3/uL (150-450); RED BLOOD COUNT 3.93 10^6/uL (4.00-5.40); WHITE BLOOD COUNT 8.4 10^3/uL (4.0-10.0)
[2021-12-05 10:56] LABS: BLOOD UREA NITROGEN 25 MG/DL (7-18); CALCIUM LEVEL 8.9 MG/DL (8.8-10.2); CARBON DIOXIDE LEVEL 24 MEQ/L (21-32); CHLORIDE LEVEL 107 MEQ/L (98-107); CREATININE FOR GFR 0.85 MG/DL (0.55-1.30); GLOMERULAR FILTRATION RATE > 60.0 (>32); GLUCOSE, FASTING 157 MG/DL (70-100); IRON (FE) 85 UG/DL (50-170); POTASSIUM SERUM 3.8 MEQ/L (3.5-5.1); SODIUM LEVEL 138 MEQ/L (136-145)
== END ==
LOC: SKLAB4 07:00
PROVIDERS: ATTEND Internal Medicine
DX: I50.9 Heart failure, unspecified (principal); D64.9 Anemia, unspecified

== ENCOUNTER → 2021-12-11 | Outpatient (REF) | payer MEDICARE ==
[2021-12-11 14:05] LABS: BLOOD UREA NITROGEN 26 MG/DL (7-18); CALCIUM LEVEL 8.8 MG/DL (8.8-10.2); CARBON DIOXIDE LEVEL 26 MEQ/L (21-32); CHLORIDE LEVEL 108 MEQ/L (98-107); CREATININE FOR GFR 0.71 MG/DL (0.55-1.30); FREE T4 1.09 NG/DL (0.76-1.46); GLOMERULAR FILTRATION RATE > 60.0 (>32); GLUCOSE, FASTING 86 MG/DL (70-100); POTASSIUM SERUM 4.6 MEQ/L (3.5-5.1); SODIUM LEVEL 139 MEQ/L (136-145); TOTAL 25(OH) VITAMIN D 21.3 NG/ML (30.0-100.0); VITAMIN B12 LEVEL 315 PG/ML (247-911)
== END ==
LOC: SKLAB4 11:28
PROVIDERS: ATTEND Internal Medicine
DX: L65.9 Nonscarring hair loss, unspecified (principal); Z79.899 Other long term (current) drug therapy

== ENCOUNTER → 2021-12-19 | Outpatient (REF) | payer MEDICARE | LOC: SKLAB4 11:07 | PROVIDERS: ATTEND Internal Medicine | DX: Z20.822 Contact with and (suspected) exposure to COVID-19 (principal) ==

== ENCOUNTER → 2022-04-01 | Outpatient (REF) | payer MEDICARE, MEDICAID ==
[2022-04-01 16:00] LABS: HEMATOCRIT 37.1 % (36.0-47.0); HEMOGLOBIN 12.2 g/dl (12.0-15.5); MEAN CORPUSCULAR HEMOGLOBIN 33.4 pg (27.0-33.0); MEAN CORPUSCULAR HGB CONC 32.9 g/dl (32.0-36.5); MEAN CORPUSCULAR VOLUME 101.6 fl (80.0-96.0); PLATELET COUNT, AUTOMATED 217 10^3/uL (150-450); RED BLOOD COUNT 3.65 10^6/uL (4.00-5.40); WHITE BLOOD COUNT 7.3 10^3/uL (4.0-10.0)
[2022-04-01 16:58] LABS: ALBUMIN 3.7 GM/DL (3.2-5.2); ALT/SGPT 27 U/L (12-78); BILIRUBIN,TOTAL 0.7 MG/DL (0.2-1.0); BLOOD UREA NITROGEN 27 MG/DL (7-18); CALCIUM LEVEL 8.9 MG/DL (8.8-10.2); CARBON DIOXIDE LEVEL 22 MEQ/L (21-32); CHLORIDE LEVEL 112 MEQ/L (98-107); CREATININE FOR GFR 0.77 MG/DL (0.55-1.30); FERRITIN 85 NG/ML (8-252); FREE T4 0.95 NG/DL (0.76-1.46); GLOMERULAR FILTRATION RATE > 60.0 (>32); GLUCOSE, FASTING 87 MG/DL (70-100); IRON (FE) 109 UG/DL (50-170); PERCENT SATURATION 31.9 % (13.2-45.0); POTASSIUM SERUM 5.1 MEQ/L (3.5-5.1); SODIUM LEVEL 142 MEQ/L (136-145); TOTAL IRON BINDING CAPACITY 342 UG/DL (250-450); TOTAL PROTEIN 6.7 GM/DL (6.4-8.2)
[2022-04-01 17:37] LABS: TOTAL 25(OH) VITAMIN D 20.6 NG/ML (30.0-100.0)
== END ==
LOC: M SFHCCLAY 10:14
PROVIDERS: ATTEND Nurse Practitioner Family
DX: E03.9 Hypothyroidism, unspecified (principal); E55.9 Vitamin D deficiency, unspecified; D50.9 Iron deficiency anemia, unspecified; I61.9 Nontraumatic intracerebral hemorrhage, unspecified

== ENCOUNTER → 2022-12-16 | Outpatient (CLI) | payer MEDICARE, MEDICAID ==
[~2022-12-16] MED LIST changes: +FLUT50SP17; -FLUTISP
[2022-12-16 16:35] LABS: HEMATOCRIT 38.9 % (36.0-47.0); HEMOGLOBIN 12.5 g/dl (12.0-15.5); MEAN CORPUSCULAR HEMOGLOBIN 32.6 pg (27.0-33.0); MEAN CORPUSCULAR HGB CONC 32.1 g/dl (32.0-36.5); MEAN CORPUSCULAR VOLUME 101.6 fl (80.0-96.0); PLATELET COUNT, AUTOMATED 253 10^3/uL (150-450); RED BLOOD COUNT 3.83 10^6/uL (4.00-5.40); WHITE BLOOD COUNT 7.8 10^3/uL (4.0-10.0)
[2022-12-16 17:06] LABS: ALBUMIN 3.7 G/DL (3.2-5.2); ALKALINE PHOSPHATASE 84 U/L (46-116); ALT/SGPT 25 U/L (7.0-40); AST/SGOT 24 U/L (<34); BILIRUBIN,TOTAL 0.8 MG/DL (0.3-1.2); BLOOD UREA NITROGEN 28 MG/DL (9-23); CALCIUM LEVEL 9.1 MG/DL (8.3-10.6); CARBON DIOXIDE LEVEL 27 MMOL/L (20-31); CHLORIDE LEVEL 107 MMOL/L (98-107); CHOLESTEROL LEVEL 189 MG/DL (<200); CHOLESTEROL RISK RATIO 2.54 (<5); CREATININE FOR GFR 0.78 MG/DL (0.55-1.30); FREE T4 1.22 NG/DL (0.89-1.76); GLOMERULAR FILTRATION RATE > 60.0 (>32); GLUCOSE, FASTING 96 MG/DL (74-106); HDL CHOLESTEROL 74.2 MG/DL (>40); LDL CHOLESTEROL 97.6 MG/DL (<100); NON-HDL-C 114.8 MG/DL; POTASSIUM SERUM 4.6 MMOL/L (3.5-5.1); SODIUM LEVEL 137 MMOL/L (136-145); THYROID STIMULATING HORMONE 2.945 uIU/ML (0.55-4.78); TOTAL PROTEIN 6.6 G/DL (5.7-8.2); TRIGLYCERIDES LEVEL 86 MG/DL (<150)
== END ==
LOC: M PLALAB 11:04
PROVIDERS: ATTEND Nurse Practitioner Family
DX: E03.9 Hypothyroidism, unspecified (principal)

== ENCOUNTER → 2023-07-06 | Outpatient (CLI) | payer MEDICARE, MEDICAID ==
[~2023-07-06] MED LIST changes: -HM S0.65; +SALI0.6531
[2023-07-07 01:26] LABS: BLOOD UREA NITROGEN 32 MG/DL (9-23); CALCIUM LEVEL 9.3 MG/DL (8.3-10.6); CARBON DIOXIDE LEVEL 26 MMOL/L (20-31); CHLORIDE LEVEL 107 MMOL/L (98-107); CREATININE FOR GFR 0.82 MG/DL (0.55-1.30); GLOMERULAR FILTRATION RATE > 60.0 (>32); GLUCOSE, FASTING 93 MG/DL (74-106); POTASSIUM SERUM 5.2 MMOL/L (3.5-5.1); SODIUM LEVEL 139 MMOL/L (136-145)
[2023-07-07 01:29] LABS: FREE T4 1.13 NG/DL (0.89-1.76); THYROID STIMULATING HORMONE 2.135 uIU/ML (0.55-4.78)
== END ==
LOC: M PLALAB 11:10
PROVIDERS: ATTEND Nurse Practitioner Family
DX: E03.9 Hypothyroidism, unspecified (principal); I10 Essential (primary) hypertension

== ENCOUNTER → 2023-07-14 | Outpatient (REF) | payer MEDICARE, MEDICAID | LOC: M SFHCCLAY 11:24 | PROVIDERS: ATTEND Nurse Practitioner Family | DX: E87.5 Hyperkalemia (principal) ==

== ENCOUNTER → 2023-10-02 | Outpatient (CLI) | payer MEDICARE, MEDICAID ==
[~2023-10-02] MED LIST changes: -FLUT50SP17; +FLUTISP
== END ==
LOC: M CLY 15:16
PROVIDERS: ATTEND Family Medicine
DX: M17.12 Unilateral primary osteoarthritis, left knee (principal); I70.202 Unspecified atherosclerosis of native arteries of extremities, left leg

== ENCOUNTER → 2023-10-02 | Outpatient (CLI) | payer MEDICARE, MEDICAID | LOC: M CLY 14:29 | PROVIDERS: ATTEND Family Medicine | DX: Z53.9 Procedure and treatment not carried out, unspecified reason (principal) ==

== ENCOUNTER → 2023-10-20 | Outpatient (CLI) | payer MEDICARE, MEDICAID | LOC: M CLY 14:42 | PROVIDERS: ATTEND Physician Assistant | DX: M47.816 Spondylosis without myelopathy or radiculopathy, lumbar region (principal) ==

== ENCOUNTER → 2023-10-20 | Outpatient (REF) | payer MEDICARE, MEDICAID | LOC: M SFHCCLAY 15:15 | PROVIDERS: ATTEND Physician Assistant | DX: R63.4 Abnormal weight loss (principal) ==

== ENCOUNTER → 2023-10-21 | Outpatient (REF) | payer MEDICARE, MEDICAID ==
[2023-10-21 12:06] LABS: BASO % 0.5 % (0.0-1.0); EOS # 0.3 10^3/uL (0.0-0.5); EOS % 4.7 % (0.0-3.0); HEMATOCRIT 35.6 % (36.0-47.0); HEMOGLOBIN 11.8 g/dl (12.0-15.5); LYMPH # 1.8 10^3/uL (1.5-5.0); LYMPH % 30.1 % (24.0-44.0); MEAN CORPUSCULAR HEMOGLOBIN 33.2 pg (27.0-33.0); MEAN CORPUSCULAR HGB CONC 33.1 g/dl (32.0-36.5); MEAN CORPUSCULAR VOLUME 100.3 fl (80.0-96.0); MONO # 0.6 10^3/uL (0.0-0.8); MONO % 10.5 % (2.0-8.0); NEUTROPHILS # 3.2 10^3/uL (1.5-8.5); PLATELET COUNT, AUTOMATED 246 10^3/uL (150-450); RED BLOOD COUNT 3.55 10^6/uL (4.00-5.40)
[2023-10-21 12:40] LABS: THYROID STIMULATING HORMONE 3.532 uIU/ML (0.55-4.78)
[2023-10-21 12:48] LABS: ALBUMIN 3.8 G/DL (3.2-5.2); ALKALINE PHOSPHATASE 61 U/L (46-116); ALT/SGPT 49 U/L (7.0-40); AST/SGOT 35 U/L (<34); BILIRUBIN,TOTAL 0.8 MG/DL (0.3-1.2); BLOOD UREA NITROGEN 38 MG/DL (9-23); CALCIUM LEVEL 9.1 MG/DL (8.3-10.6); CARBON DIOXIDE LEVEL 23 MMOL/L (20-31); CHLORIDE LEVEL 108 MMOL/L (98-107); CREATININE FOR GFR 0.69 MG/DL (0.55-1.30); GLOMERULAR FILTRATION RATE > 60.0 (>32); GLUCOSE, FASTING 95 MG/DL (74-106); POTASSIUM SERUM 4.6 MMOL/L (3.5-5.1); SODIUM LEVEL 138 MMOL/L (136-145); TOTAL PROTEIN 6.7 G/DL (5.7-8.2)
== END ==
PROVIDERS: ATTEND Physician Assistant
DX: R63.4 Abnormal weight loss (principal)

== ENCOUNTER → 2023-12-10 | Outpatient (REF) | payer MEDICARE, MEDICAID ==
[2023-12-10 18:58] LABS: BASO # 0.1 10^3/uL (0.0-0.2); EOS # 0.6 10^3/uL (0.0-0.5); EOS % 8.8 % (0.0-3.0); HEMATOCRIT 36.2 % (36.0-47.0); HEMOGLOBIN 11.8 g/dl (12.0-15.5); LYMPH % 30.6 % (24.0-44.0); MEAN CORPUSCULAR HEMOGLOBIN 33.7 pg (27.0-33.0); MEAN CORPUSCULAR HGB CONC 32.6 g/dl (32.0-36.5); MEAN CORPUSCULAR VOLUME 103.4 fl (80.0-96.0); MONO # 0.7 10^3/uL (0.0-0.8); MONO % 10.9 % (2.0-8.0); NEUTROPHILS # 3.2 10^3/uL (1.5-8.5); NEUTROPHILS % 48.6 % (36.0-66.0); PLATELET COUNT, AUTOMATED 232 10^3/uL (150-450); WHITE BLOOD COUNT 6.7 10^3/uL (4.0-10.0)
[2023-12-10 19:04] LABS: PERCENT SATURATION 32.8 % (13.2-45.0)
[2023-12-10 19:12] LABS: FERRITIN 327.6 NG/ML (7.3-270.7)
== END ==
LOC: M SFHCCLAY 13:28
PROVIDERS: ATTEND Nurse Practitioner Family
DX: D50.9 Iron deficiency anemia, unspecified (principal)

== ENCOUNTER → 2024-06-07 | Outpatient (REF) | payer MEDICARE, MEDICAID | LOC: M SFHCCLAY 11:14 | PROVIDERS: ATTEND Nurse Practitioner Family | DX: Z00.00 Encounter for general adult medical examination without abnormal findings (principal); D50.9 Iron deficiency anemia, unspecified; C44.92 Squamous cell carcinoma of skin, unspecified; I10 Essential (primary) hypertension; I61.9 Nontraumatic intracerebral hemorrhage, unspecified; E03.9 Hypothyroidism, unspecified ==

== ENCOUNTER → 2024-06-20 | Outpatient (REF) | payer MEDICARE, MEDICAID ==
[~2024-06-20] MED LIST changes: +EPIN0.055 OU; -EPIN1DRO OU
[2024-06-20 10:06] LABS: BASO # 0.1 10^3/uL (0.0-0.2); BASO % 0.7 % (0.0-1.0); EOS # 0.8 10^3/uL (0.0-0.5); EOS % 10.1 % (0.0-3.0); HEMOGLOBIN 12.1 g/dl (12.0-15.5); LYMPH # 2.6 10^3/uL (1.5-5.0); MEAN CORPUSCULAR HGB CONC 32.7 g/dl (32.0-36.5); MEAN CORPUSCULAR VOLUME 103.9 fl (80.0-96.0); MONO # 0.8 10^3/uL (0.0-0.8); MONO % 9.5 % (2.0-8.0); NEUTROPHILS # 3.9 10^3/uL (1.5-8.5); NEUTROPHILS % 47.5 % (36.0-66.0); PLATELET COUNT, AUTOMATED 223 10^3/uL (150-450); RED BLOOD COUNT 3.56 10^6/uL (4.00-5.40); WHITE BLOOD COUNT 8.2 10^3/uL (4.0-10.0)
[2024-06-20 10:48] LABS: THYROID STIMULATING HORMONE 1.563 uIU/ML (0.55-4.78)
[2024-06-20 10:52] LABS: ALBUMIN 3.8 G/DL (3.2-5.2); ALKALINE PHOSPHATASE 195 U/L (46-116); ALT/SGPT 90 U/L (7.0-40); AST/SGOT 72 U/L (<34); BILIRUBIN,TOTAL 0.8 MG/DL (0.3-1.2); BLOOD UREA NITROGEN 25 MG/DL (9-23); CALCIUM LEVEL 9.3 MG/DL (8.3-10.6); CARBON DIOXIDE LEVEL 26 MMOL/L (20-31); CHLORIDE LEVEL 106 MMOL/L (98-107); CHOLESTEROL LEVEL 135 MG/DL (<200); CHOLESTEROL RISK RATIO 2.11 (<5); CREATININE FOR GFR 0.76 MG/DL (0.55-1.30); GLOMERULAR FILTRATION RATE > 60.0 (>32); GLUCOSE, FASTING 67 MG/DL (74-106); HDL CHOLESTEROL 63.7 MG/DL (>40); LDL CHOLESTEROL 52.9 MG/DL (<100); NON-HDL-C 71.3 MG/DL; POTASSIUM SERUM 4.7 MMOL/L (3.5-5.1); SODIUM LEVEL 140 MMOL/L (136-145); TOTAL PROTEIN 7.2 G/DL (5.7-8.2); TRIGLYCERIDES LEVEL 92 MG/DL (<150)
== END ==
PROVIDERS: ATTEND Nurse Practitioner Family
DX: Z00.00 Encounter for general adult medical examination without abnormal findings (principal); C44.92 Squamous cell carcinoma of skin, unspecified; D50.9 Iron deficiency anemia, unspecified; I10 Essential (primary) hypertension; I61.9 Nontraumatic intracerebral hemorrhage, unspecified; E03.9 Hypothyroidism, unspecified

== ENCOUNTER → 2024-06-24 | Outpatient (REF) | payer MEDICARE, MEDICAID ==
[~2024-06-24] MED LIST changes: -EPIN0.055 OU; +EPIN1DRO OU
[2024-06-24 09:26] LABS: HEMOGLOBIN A1c 5.3 % (4.0-6.0)
[2024-06-24 09:27] LABS: ALBUMIN 3.8 G/DL (3.2-5.2); ALKALINE PHOSPHATASE 199 U/L (46-116); ALT/SGPT 87 U/L (7.0-40); AST/SGOT 73 U/L (<34); BILIRUBIN,DIRECT 0.3 MG/DL (<0.4); BILIRUBIN,TOTAL 0.9 MG/DL (0.3-1.2); BLOOD UREA NITROGEN 31 MG/DL (9-23); CALCIUM LEVEL 9.1 MG/DL (8.3-10.6); CARBON DIOXIDE LEVEL 28 MMOL/L (20-31); CHLORIDE LEVEL 110 MMOL/L (98-107); GLOMERULAR FILTRATION RATE > 60.0 (>32); GLUCOSE, FASTING 83 MG/DL (74-106); POTASSIUM SERUM 4.5 MMOL/L (3.5-5.1); SODIUM LEVEL 139 MMOL/L (136-145); TOTAL PROTEIN 7.1 G/DL (5.7-8.2)
[2024-06-24 09:41] LABS: HEPATITIS B SURFACE ANTIGEN NEGATIVE (NEGATIVE)
[2024-06-24 10:01] LABS: HEPATITIS B CORE ANTIBODY IGM NEGATIVE (NEGATIVE); HEPATITIS C VIRUS ABY INDEX 0.14 INDEX (<0.8)
== END ==
PROVIDERS: ATTEND Nurse Practitioner Family
DX: Z00.00 Encounter for general adult medical examination without abnormal findings (principal); R74.8 Abnormal levels of other serum enzymes; Z79.899 Other long term (current) drug therapy

== ENCOUNTER → 2024-07-26 | Outpatient (CLI) | payer MEDICARE, MEDICAID ==
[~2024-07-26] MED LIST changes: +EPIN0.055 OU; -EPIN1DRO OU
== END ==
LOC: M RAD 08:33
PROVIDERS: ATTEND Nurse Practitioner Family
DX: R74.8 Abnormal levels of other serum enzymes (principal)

== ENCOUNTER → 2024-08-26 | Outpatient (REF) | payer MEDICARE, MEDICAID ==
[2024-08-26 11:22] LABS: BLOOD UREA NITROGEN 32 MG/DL (9-23); CALCIUM LEVEL 9.1 MG/DL (8.3-10.6); CARBON DIOXIDE LEVEL 24 MMOL/L (20-31); CHLORIDE LEVEL 110 MMOL/L (98-107); CREATININE FOR GFR 0.79 MG/DL (0.55-1.30); GLOMERULAR FILTRATION RATE > 60.0 (>32); GLUCOSE, FASTING 87 MG/DL (74-106); POTASSIUM SERUM 4.8 MMOL/L (3.5-5.1); SODIUM LEVEL 142 MMOL/L (136-145)
== END ==
PROVIDERS: ATTEND Nurse Practitioner Family
DX: K76.9 Liver disease, unspecified (principal)

== ENCOUNTER → 2024-09-02 | Outpatient (CLI) | payer MEDICARE, MEDICAID ==
[~2024-09-02] MED LIST changes: +PROHANCE 279.3MG/ML 15ML VIAL As Ordered ONE
== END ==
LOC: M RAD 08:43
PROVIDERS: ATTEND Nurse Practitioner Family
DX: K76.9 Liver disease, unspecified (principal)
CPT/HCPCS: 74183; A9576

== ENCOUNTER → 2024-10-12 | Outpatient (REF) | payer MEDICARE, MEDICAID ==
[~2024-10-12] MED LIST changes: -PROHANCE 279.3MG/ML 15ML VIAL As Ordered ONE
== END ==
PROVIDERS: ATTEND Family Medicine
DX: R05.9 Cough, unspecified (principal)

== ENCOUNTER → 2024-11-28 | Outpatient (REF) | payer MEDICARE, MEDICAID ==
[2024-11-28 17:52] LABS: APPEARANCE, URINE CLOUDY (CLEAR); BACTERIA, URINE AUTO 1+ (NEGATIVE); BILIRUBIN, URINE AUTO NEGATIVE (NEGATIVE); BLOOD, URINE BLOOD 3+ (NEGATIVE); COLOR, URINE YELLOW (YELLOW); GLUCOSE, URINE (UA) AUTO NEGATIVE (NEGATIVE); KETONE, URINE AUTO NEGATIVE (NEGATIVE); LEUKOCYTE ESTERASE, URINE AUTO 2+ (NEGATIVE); NITRITE, URINE AUTO NEGATIVE (NEGATIVE); PROTEIN, URINE AUTO 2+ mg/dL (NEGATIVE); RBC, URINE AUTO TNTC /HPF (0-3); SPECIFIC GRAVITY URINE AUTO 1.016 (1.002-1.035); SQUAMOUS EPITHELIAL CELL UR AU 0 /HPF (0-6); UROBILINOGEN, URINE AUTO 0.2 mg/dL (0.0-2.0); WBC, URINE AUTO TNTC /HPF (0-3)
== END ==
PROVIDERS: ATTEND Nurse Practitioner Family
DX: R30.0 Dysuria (principal)

== ENCOUNTER → 2024-12-08 | Outpatient (REF) | payer MEDICARE, MEDICAID ==
[2024-12-08 18:06] LABS: APPEARANCE, URINE TURBID (CLEAR); BACTERIA, URINE AUTO 1+ (NEGATIVE); BILIRUBIN, URINE AUTO NEGATIVE (NEGATIVE); BLOOD, URINE BLOOD NEGATIVE (NEGATIVE); CALCIUM OXALATE CRYSTALS MODERATE; COLOR, URINE AMBER (YELLOW); GLUCOSE, URINE (UA) AUTO NEGATIVE (NEGATIVE); KETONE, URINE AUTO TRACE mg/dL (NEGATIVE); LEUKOCYTE ESTERASE, URINE AUTO 3+ (NEGATIVE); MUCUS, URINE SMALL (NEGATIVE); NITRITE, URINE AUTO NEGATIVE (NEGATIVE); PROTEIN, URINE AUTO 2+ mg/dL (NEGATIVE); RBC, URINE AUTO 3 /HPF (0-3); SPECIFIC GRAVITY URINE AUTO 1.027 (1.002-1.035); SQUAMOUS EPITHELIAL CELL UR AU 0 /HPF (0-6); UROBILINOGEN, URINE AUTO 0.2 mg/dL (0.0-2.0); WBC, URINE AUTO 92 /HPF (0-3)
== END ==
LOC: M SFHCCLAY 11:07
PROVIDERS: ATTEND Nurse Practitioner Family
DX: R30.0 Dysuria (principal)

== ENCOUNTER → 2024-12-12 | Outpatient (REF) | payer MEDICARE, MEDICAID ==
[2024-12-12 10:10] LABS: HEMATOCRIT 37.9 % (36.0-47.0); HEMOGLOBIN 12.6 g/dl (12.0-15.5); MEAN CORPUSCULAR HEMOGLOBIN 33.8 pg (27.0-33.0); MEAN CORPUSCULAR HGB CONC 33.2 g/dl (32.0-36.5); MEAN CORPUSCULAR VOLUME 101.6 fl (80.0-96.0); PLATELET COUNT, AUTOMATED 252 10^3/uL (150-450); RED BLOOD COUNT 3.73 10^6/uL (4.00-5.40); WHITE BLOOD COUNT 10.9 10^3/uL (4.0-10.0)
[2024-12-12 10:37] LABS: BLOOD UREA NITROGEN 30 MG/DL (9-23); CALCIUM LEVEL 8.7 MG/DL (8.3-10.6); CARBON DIOXIDE LEVEL 26 MMOL/L (20-31); CHLORIDE LEVEL 102 MMOL/L (98-107); GLOMERULAR FILTRATION RATE > 60.0 (>32); GLUCOSE, FASTING 105 MG/DL (74-106); IRON (FE) 42 UG/DL (50-170); PERCENT SATURATION 18.6 % (13.2-45.0); POTASSIUM SERUM 4.4 MMOL/L (3.5-5.1); SODIUM LEVEL 139 MMOL/L (136-145); TOTAL IRON BINDING CAPACITY 226 UG/DL (250-425)
[2024-12-12 10:39] LABS: FERRITIN 666.4 NG/ML (7.3-270.7)
== END ==
PROVIDERS: ATTEND Nurse Practitioner Family
DX: D50.9 Iron deficiency anemia, unspecified (principal)

== ENCOUNTER → 2024-12-27 | Outpatient (REF) | payer MEDICARE, MEDICAID ==
[2024-12-27 17:45] LABS: HEMATOCRIT 35.3 % (36.0-47.0); HEMOGLOBIN 11.4 g/dl (12.0-15.5); MEAN CORPUSCULAR HEMOGLOBIN 33.5 pg (27.0-33.0); MEAN CORPUSCULAR HGB CONC 32.3 g/dl (32.0-36.5); MEAN CORPUSCULAR VOLUME 103.8 fl (80.0-96.0); PLATELET COUNT, AUTOMATED 242 10^3/uL (150-450)
[2024-12-27 17:49] LABS: ALBUMIN 3.5 G/DL (3.2-5.2); BILIRUBIN,TOTAL 0.7 MG/DL (0.3-1.2); CALCIUM LEVEL 9.2 MG/DL (8.3-10.6); CREATININE FOR GFR 0.75 MG/DL (0.55-1.30); GLOMERULAR FILTRATION RATE 77.5 (>32); POTASSIUM SERUM 4.3 MMOL/L (3.5-5.1); TOTAL PROTEIN 6.3 G/DL (5.7-8.2)
== END ==
LOC: M SFHCCLAY 13:43
PROVIDERS: ATTEND Nurse Practitioner Family
DX: R63.4 Abnormal weight loss (principal); N39.0 Urinary tract infection, site not specified

== ENCOUNTER → 2025-04-11 | Outpatient (REF) | payer MEDICARE, MEDICAID ==
[2025-04-11 18:07] LABS: BASO # 0.0 10^3/uL (0.0-0.2); BASO % 0.7 % (0.0-1.0); EOS # 0.2 10^3/uL (0.0-0.5); EOS % 3.6 % (0.0-3.0); LYMPH # 1.4 10^3/uL (1.5-5.0); LYMPH % 24.4 % (24.0-44.0); MONO # 0.6 10^3/uL (0.0-0.8); MONO % 10.8 % (2.0-8.0); NEUTROPHILS # 3.3 10^3/uL (1.5-8.5); NEUTROPHILS % 60.1 % (36.0-66.0); PLATELET COUNT, AUTOMATED 170 10^3/uL (150-450)
[2025-04-11 18:08] LABS: IRON (FE) 82.0 UG/DL (50-170)
[2025-04-11 18:09] LABS: ALT/SGPT 98.0 U/L (7.0-40); AST/SGOT 61.0 U/L (<34); CALCIUM LEVEL 8.2 MG/DL (8.3-10.6); CARBON DIOXIDE LEVEL 27.0 MMOL/L (20-31); CHLORIDE LEVEL 105.0 MMOL/L (98-107); CREATININE FOR GFR 0.6 MG/DL (0.55-1.30); GLOMERULAR FILTRATION RATE 87.4 (>32); PERCENT SATURATION 31.7 % (13.2-45.0); POTASSIUM SERUM 3.9 MMOL/L (3.5-5.1); SODIUM LEVEL 141.0 MMOL/L (136-145)
[2025-04-11 18:11] LABS: FREE T4 1.17 NG/DL (0.89-1.76); VITAMIN B12 LEVEL 466.0 PG/ML (211-911)
== END ==
LOC: M SFHCCLAY 10:17
PROVIDERS: ATTEND Nurse Practitioner Family
DX: K21.9 Gastro-esophageal reflux disease without esophagitis (principal); D50.9 Iron deficiency anemia, unspecified; C44.92 Squamous cell carcinoma of skin, unspecified; I10 Essential (primary) hypertension; I61.9 Nontraumatic intracerebral hemorrhage, unspecified; E03.9 Hypothyroidism, unspecified; I50.42 Chronic combined systolic (congestive) and diastolic (congestive) heart failure

== ENCOUNTER 2025-07-10 11:41 | Emergency (ER) | payer MEDICARE, MEDICAID ==
[~2025-07-10] VITALS: Ht 157.5 cm; Wt 48.3 kg
[~2025-07-10 11:41] MED LIST changes: +ATOR40TA75 PO; +ECOT81TA5 PO; +EYEL1MED2 TP; +MELA5CAP2 PO; +METO200T15 PO; +MOM30SS PO; +PRES1CHW PO; +REFRSOL OP; +TRAV2.5D OP; +[UNRECOGNIZED DRUG - CODE] OP
[2025-07-10 18:09] VITALS: BP 162/76; TEMP 97.6; O2SAT 97
== END 2025-07-10 18:18 | disposition home or self-care (01) ==
LOC: M ED 11:41
DX: R60.0 Localized edema (principal); Z88.2 Allergy status to sulfonamides; Z88.1 Allergy status to other antibiotic agents; Z88.5 Allergy status to narcotic agent; Z86.79 Personal history of other diseases of the circulatory system; Z79.82 Long term (current) use of aspirin; Z79.02 Long term (current) use of antithrombotics/antiplatelets; Z79.899 Other long term (current) drug therapy

== ENCOUNTER → 2025-07-18 | Outpatient (REF) | payer MEDICARE, MEDICAID ==
[2025-07-18 17:26] LABS: CALCIUM LEVEL 8.9 MG/DL (8.3-10.6); CARBON DIOXIDE LEVEL 28.0 MMOL/L (20-31); CHLORIDE LEVEL 103.0 MMOL/L (98-107); CREATININE FOR GFR 0.83 MG/DL (0.55-1.30); GLOMERULAR FILTRATION RATE 68.6 (>32); POTASSIUM SERUM 4.5 MMOL/L (3.5-5.1); SODIUM LEVEL 141.0 MMOL/L (136-145)
== END ==
LOC: M SFHCCLAY 13:59
PROVIDERS: ATTEND Physician Assistant
DX: R60.0 Localized edema (principal)

== ENCOUNTER → 2025-07-24 | Outpatient (REF) | payer MEDICARE, MEDICAID ==
[~2025-07-24] MED LIST changes: +CETI10CA13 PO; +COLA100C5 PO; +ENTR1TAB4; +FERR325T3 PO; +FURO40TA2; +KAPS25CA; +LEVO75TA4; +LOPE1CAP5 PO
[2025-07-24 12:54] LABS: BASO # 0.1 10^3/uL (0.0-0.2); BASO % 0.8 % (0.0-1.0); EOS # 0.6 10^3/uL (0.0-0.5); EOS % 9.2 % (0.0-3.0); LYMPH # 1.3 10^3/uL (1.5-5.0); LYMPH % 21.6 % (24.0-44.0); MONO # 0.5 10^3/uL (0.0-0.8); MONO % 8.5 % (2.0-8.0); NEUTROPHILS # 3.6 10^3/uL (1.5-8.5); NEUTROPHILS % 59.7 % (36.0-66.0); PLATELET COUNT, AUTOMATED 184 10^3/uL (150-450)
[2025-07-24 13:31] LABS: ALT/SGPT 92 U/L (7.0-40); AST/SGOT 81 U/L (<34); CALCIUM LEVEL 8.3 MG/DL (8.3-10.6); CARBON DIOXIDE LEVEL 27 MMOL/L (20-31); CHLORIDE LEVEL 103 MMOL/L (98-107); CREATININE FOR GFR 0.83 MG/DL (0.55-1.30); GLOMERULAR FILTRATION RATE 68.6 (>32); POTASSIUM SERUM 4.2 MMOL/L (3.5-5.1); SODIUM LEVEL 140 MMOL/L (136-145); VITAMIN B12 LEVEL 496 PG/ML (211-911)
== END ==
PROVIDERS: ATTEND Internal Medicine Hematology & Oncology
DX: D55.9 Anemia due to enzyme disorder, unspecified (principal)

== ENCOUNTER → 2025-08-01 | Outpatient (REF) | payer MEDICARE, MEDICAID ==
[2025-08-01 17:12] LABS: CALCIUM LEVEL 8.8 MG/DL (8.3-10.6); CARBON DIOXIDE LEVEL 30.0 MMOL/L (20-31); CHLORIDE LEVEL 102.0 MMOL/L (98-107); CREATININE FOR GFR 0.98 MG/DL (0.55-1.30); GLOMERULAR FILTRATION RATE 56.2 (>32); POTASSIUM SERUM 4.8 MMOL/L (3.5-5.1); SODIUM LEVEL 141.0 MMOL/L (136-145)
== END ==
LOC: M SFHCCLAY 16:52
PROVIDERS: ATTEND Physician Assistant
DX: R60.0 Localized edema (principal)

== ENCOUNTER → 2025-08-18 | Outpatient (CLI) | payer MEDICARE, MEDICAID | LOC: M RAD 11:46 | PROVIDERS: ATTEND Physician Assistant | DX: R60.0 Localized edema (principal); R09.89 Other specified symptoms and signs involving the circulatory and respiratory systems ==

== ENCOUNTER → 2025-08-29 | Outpatient (REF) | payer MEDICARE, MEDICAID ==
[2025-08-29 18:42] LABS: CALCIUM LEVEL 9.2 MG/DL (8.3-10.6); CARBON DIOXIDE LEVEL 28.0 MMOL/L (20-31); CHLORIDE LEVEL 103.0 MMOL/L (98-107); CREATININE FOR GFR 0.87 MG/DL (0.55-1.30); GLOMERULAR FILTRATION RATE 64.8 (>32); POTASSIUM SERUM 4.7 MMOL/L (3.5-5.1); SODIUM LEVEL 139.0 MMOL/L (136-145)
== END ==
LOC: M SFHCCLAY 14:17
PROVIDERS: ATTEND Nurse Practitioner Family
DX: R60.0 Localized edema (principal)

== ENCOUNTER → 2025-09-05 | Outpatient (CLI) | payer MEDICARE ==
[~2025-09-05] MED LIST changes: +ISOVUE-370 76% 100 ML VIAL ONE
== END ==
LOC: M PLAIMG 14:42
PROVIDERS: ATTEND Student in an Organized Health Care Education/Training Program
DX: R22.42 Localized swelling, mass and lump, left lower limb (principal); D72.10 Eosinophilia, unspecified
CPT/HCPCS: 72193; Q9967

== ENCOUNTER → 2025-09-11 | Outpatient (CLI) | payer MEDICARE ==
[~2025-09-11] MED LIST changes: -ISOVUE-370 76% 100 ML VIAL ONE
[2025-09-11 18:38] LABS: BASO # 0.1 10^3/uL (0.0-0.2); BASO % 0.7 % (0.0-1.0); EOS # 0.5 10^3/uL (0.0-0.5); EOS % 6.4 % (0.0-3.0); LYMPH # 2.7 10^3/uL (1.5-5.0); LYMPH % 33.3 % (24.0-44.0); MONO # 0.8 10^3/uL (0.0-0.8); MONO % 10.1 % (2.0-8.0); NEUTROPHILS # 4.0 10^3/uL (1.5-8.5); NEUTROPHILS % 49.3 % (36.0-66.0); PLATELET COUNT, AUTOMATED 232 10^3/uL (150-450)
[2025-09-11 18:45] LABS: ALT/SGPT 59 U/L (7.0-40); AST/SGOT 48 U/L (<34); CALCIUM LEVEL 8.6 MG/DL (8.3-10.6); CARBON DIOXIDE LEVEL 27 MMOL/L (20-31); CHLORIDE LEVEL 107 MMOL/L (98-107); CREATININE FOR GFR 1.15 MG/DL (0.55-1.30); GLOMERULAR FILTRATION RATE 46.4 (>32); IRON (FE) 90 UG/DL (50-170); PERCENT SATURATION 33.5 % (13.2-45.0); POTASSIUM SERUM 4.7 MMOL/L (3.5-5.1); SODIUM LEVEL 143 MMOL/L (136-145)
[2025-09-11 18:47] LABS: VITAMIN B12 LEVEL 575 PG/ML (211-911)
== END ==
LOC: M PLALAB 14:54
PROVIDERS: ATTEND Student in an Organized Health Care Education/Training Program
DX: D64.9 Anemia, unspecified (principal)